=== PATIENT | male | born 1945 | race Caucasian/White ===

== ENCOUNTER 2021-01-29 18:00 | Outpatient (REF) | payer MEDICARE, BC, SELFPAY ==
[2021-01-29 20:59] LABS: Abs Immature Grans 0.02 10^3/uL (0.0-0.06); Absolute Basophil Count 0.08 10^3/uL (0.0-0.2); Absolute Eosinophil Count 0.15 10^3/uL (0.0-0.7); Absolute Lymphocyte Count 1.73 10^3/uL (1.2-3.4); Absolute Monocyte Count 1.21 10^3/uL (0.1-0.8); Absolute Neutrophil Count 4.79 10^3/uL (1.2-6.7); Eosinophils % 1.9; HGB 13.2 g/dL (13.5-17.5); Immature Grans % 0.3; Lymphocytes % 21.7; MCH 30.4 pg (27.0-33.0); MCHC 33.8 % (32.0-36.0); MCV 89.9 fL (80-95); MPV 10.8 fL (8.0-11.0); Monocytes % 15.2; Neutrophils % 59.9; Nucleated RBC 0 %; Platelet Count 205 10^3/uL (130-400); RBC 4.34 10^6/uL (4.36-5.78); RDW 13.2 % (11.8-14.1); RDW-SD 43.5 fL; WBC 7.98 10^3/uL (4.4-10.8)
[2021-01-29 21:04] LABS: Anion Gap 7.5 mmol/L (3-11); BUN 30 mg/dL (7-18); CO2 27.5 mmol/L (21.0-32.0); CREATININE 1.7 mg/dL (0.70-1.30); Chloride 106 mmol/L (98-107); Estimated GFR 39.38 (mL/min/1.73m2); Glucose 114 mg/dL (74-106); Potassium 4.1 mmol/L (3.5-5.1); Sodium 141 mmol/L (136-145)
== END 2021-01-29 18:01 | disposition home or self-care (01) ==
LOC: LBN 18:00
PROVIDERS: Visit Provider Physician Assistant Medical
DX: R10.31 Right lower quadrant pain (principal)
CPT/HCPCS: 80048; 85025

== ENCOUNTER 2021-02-01 09:42 | Outpatient (CLI) | payer MEDICARE, BC, SELFPAY ==
--- NOTE | 2021-02-01 | DI.CT_ITS ---
Exam(s) CT RENAL COLIC WO EXAM: CT RENAL COLIC WO CLINICAL HISTORY: RT FLANK PAIN R10.9, HX KIDNEY STONES. TECHNIQUE: Imaging Protocol: Axial computed tomography images with coronal and sagittal reformatted images were created and reviewed. CONTRAST MATERIAL: Noncontrast COMPARISON: No exams were available for comparison FINDINGS: ABDOMEN: Exam is somewhat limited by motion at the level of the kidneys and lung bases. Lung Bases: Normal where visualized. Eventration of the right diaphragm Liver: Normal attenuation. Multiple cysts. Gallbladder and biliary tract: No radiodense calculus or dilation. Pancreas: Somewhat atrophic. Normal density, no calcifications or inflammatory process. Spleen: Normal. Kidneys: Normal size, contour and axis. 12 x 5 millimeter stone distal right ureter causing moderate hydronephrosis. Additional punctate calcifications. No perinephric collection. 12 millimeter stone lower pole left kidney. Additional smaller stone lower pole left kidney. Tiny stone upper pole left kidney. No masses seen. Adrenal glands: No masses seen. Abdominal Aorta: Atherosclerotic changes. Tortuous and mildly ectatic. PELVIS: Bladder: Symmetric distention, mild diffuse gross wall thickening. Reproductive: Enlarged prostate wi th calcifications impressing on the base of the bladder. Bowel: No obstruction or bowel wall thickening. Peritoneal cavity: No ascites, collection or mesenteric inflammatory response. Bones: Within normal limits. IMPRESSION: Moderate right hydronephrosis secondary to 12 millimeter stone in the distal right ureter. Additiona l bilateral nonobstructing renal calculi, left greater than right. RADIATION DOSE DELIVERED: 953.43mGy.cm Total DLP DATA REPOSITORY: All CT scans at this facility are submitted to the National Radiology Data Registry (NRDR) Dose Index Registry (DIR) with the [employer] (A[employer]). RADIATION OPTIMIZATION: All CT scans at this facility use at least one of these dose optimization te chniques: automated exposure control; mA and/or kV adjustment per patient size (includes targeted exa ms where dose is matched to clinical indication); or iterative reconstruction.
== END 2021-02-01 10:02 ==
PROVIDERS: Visit Provider Physician Assistant Medical
DX: R10.9 Unspecified abdominal pain (principal); N13.2 Hydronephrosis with renal and ureteral calculous obstruction
CPT/HCPCS: 74176

== ENCOUNTER 2021-02-02 08:16 | Observation (INO) | payer MEDICARE, BC, SELFPAY ==
[2021-02-02] VITALS (88 sets, daily range): BP systolic 81–151; BP diastolic 30–79; PULSE 86–116; RESP 14–39; TEMP 36.7–38.2; O2SAT 90–95; BMI 25.1
--- OUTSIDE RECORDS SUMMARY | 2021-02-02 08:23 | XMS_ITS ---
:1945 Author Care Team Providers Name Role Phone DR. DARIANA ALFARO Primary Care Provider [phone] Allergies Code Code System Name Reaction Severity Status Onset 001021 RxNorm Demerol ? ? Active ? Sulfa ? ? Active ? (Sulfonamide Antibiotics) Notes: MSG STEROID SENSITIVITY Medications Name Status Start Date Stop Date ? ? amoxicillin 875 mg-potassium Completed ? 04/2018 clavulanate 125 mg tablet aspirin 81 mg tablet Completed ? 04/25/2018 occasionally azelastine 137 mcg (0.1 %) nasal spray Unknown ? Not available aerosol ciprofloxacin 500 mg tablet Completed ? 05/23 clindamycin HCl 300 mg capsule Unknown ? N ot available Eliquis 5 mg tablet Active ? Not availabl e fluorouracil 5 % topical cream Completed ? 0 06/18/2019 Fluvirin 5069-8474 45 mcg (15 mcg x 3)/0.5 mL intramuscular suspension Unknown ? Not available INJECT 0.5 ML INTRAMUSCULARLY DIRECTED. ICaps Active ? Not available once a day ketorolac 10 mg tablet Completed ? 8 lisinopril 20 mg tablet Completed ? 04/25/20 18 TK 1 T PO D lisinopril 20 mg-hydrochlorothiazide Unknown ? Not available 12.5 mg tablet lisinopril 40 mg tablet Active ? Not avai lable melatonin Completed ? 10/31/2017 at bedtime metoprolol tartrate 50 mg tablet Active ? Not available Mucinex Active ? Not available prn nystatin 100,000 unit/gram topical Completed ? 06/18/2019 cream oxybutynin chloride 5 mg tablet Active ? Not available triamcinolone acetonide 0.1 % topical Unknown ? Not available cream Tylenol 325 mg tablet Active ? Not availa ble Take 1 tablet every week by oral route as needed. valacyclovir 500 mg tablet Active ? Not a vailable as needed Vitamin D3 Active ? Not available once a day zaleplon 10 mg capsule Unknown ? Not avail able Take 1 capsule as needed by oral route for 30 days. Problems Name Status Onset Date Source ? Insomnia Active 05/03/2016 ? Aortic Aneurysm Active 05/03/2016 ? Pulmonary Embolism Active 04/25/2018 ? Obstructive Sleep Apnea Syndrome Active ? ? Benign Essential Hypertension Active ? Hi story Atrial Arrhythmia Active ? History Allergic Rhinitis Active ? Encounter Kidney Stone Active ? History Sleep Apnea Unknown ? History Edema Active ? History Notes: *Auto CPAP download from 05/18/19 to 06/16/19 revealed: 1. Adherent at 90%>4hrs 2. AHI of 9.5 on therapy of Auto CPAP 4- 15 cwp; 95%=9.4 cwp 3. Leak= 21.4 L/min Procedures Date Name Performed by ? ? Other Information not avai lable Notes: Kidney stones ? Other Information not avai lable Notes: Appendectomy ? Other Information not avai lable Notes: Tonsillectomy Results Lab Results None recorded. Past Encounters None recorded. Social History Tobacco Smoking Status Former Smoker Notes: Hx of s moking cigars and pipes, quit in 1984 Vaccine List None recorded. Plan of Care Reminders Provider Appointments None ? ? recorded. Lab None ? ? recorded. Referral None ? ? recorded. Procedures None ? ? recorded. Surgeries None ? ? recorded. Imaging None ? ? recorded. Vitals 06/18/2019 11:00AM Follow Up ([facility]) Height Weight BMI Blood Pressure 5 ft 11 in 190.1 lbs 26.5 kg/m2 137/68 mm[Hg] 04/30/2019 11:20AM Follow Up ([facility]) Height Weight BMI Blood Pressure 5 ft 11 in 188.5 lbs 26.3 kg/m2 (1) 167/67 mm[H g] (2) 151/72 mm[Hg ] 04/25/2018 02:15PM FOLLOW UP Height Weight BMI Blood Pressure 5 ft 11 in 192.6 lbs 26.9 kg/m2 145/74 mm[Hg] 10/31/2017 08:45AM FOLLOW UP Height Weight BMI Blood Pressure 5 ft 11 in 187 lbs 26.1 kg/m2 168/76 mm[Hg] 06/13/2017 11:30AM FOLLOW UP Height Weight BMI Blood Pressure 5 ft 11 in 187.8 lbs 26.2 kg/m2 (1) 161/75 mm[H g] (2) 163/74 mm[Hg ] 05/03/2016 11:00AM FOLLOW UP Height Weight BMI Blood Pressure 5 ft 11 in 191.6 lbs 26.7 kg/m2 144/74 mm[Hg] 04/29/2015 09:00AM FOLLOW UP Height Weight BMI Blood Pressure 5 ft 11 in 188.6 lbs 26.3 kg/m2 (1) 151/79 mm[H g] (2) 163/69 mm[Hg ] 04/29/2014 09:15AM FOLLOW UP Height Weight BMI Blood Pressure 5 ft 11 in 190 lbs 26.5 kg/m2 137/70 mm[Hg]
--- NOTE | 2021-02-02 08:30 | DI.RAD_ITS ---
Exam(s) XR PORTABLE CHEST AP EXAM: XR PORTABLE CHEST AP CLINICAL HISTORY: Fever, PUI, R/O PNA TECHNIQUE: 2D digital imaging was performed. COMPARISON: CT CT RENAL COLIC WO from 02/01/[address] RENAL COLIC WO from 02/01/2021 FINDINGS: LUNGS: Linear densities above right diaphragm consistent with atelectasis or scarring. Patchy densit ies in both lungs. No pleural abnormality seen. HEART: Normal. MEDIASTINUM: Aorta mildly tortuous. BONES: Unremarkable. IMPRESSION: Mild bilateral patchy infiltrates. DATA REPOSITORY: RADIATION DOSE DELIVERED:
--- NOTE | 2021-02-02 08:53 | ED.GENADUL_ITS ---
Discharge Plan Disposition Patient Disposition: [facility] INPATIENT Condition: Stable Discharge Details Clinical Impression: Fever, Kidney stones Admit Date/Time: 02/02/21 12:49 Admit Provider: Matt Gamez Attending Provider: Matt Gamez Primary Care Provider: [facility] ED Provider: Susie Mon Medical Decision Making 75-year-old male presents to the ER with chief complaint of flank pain, abdominal pain and fever which began this morning. Patient had a renal CT yesterday after being seen in urgent care. He does have a history of kidney stones has had multiple lithotripsies and stone removals including stent placement. Patient and his are originally from [place] and stay here in town during the summer. Associated symptoms include diaphoresis, diarrhea, slight cough which began yesterday.. CBC shows no leukocytosis hemoglobin 13.2 hematocrit 39.1, absolute neutrophils 8.67 PT 11.0 INR 1.1 lactate slightly elevated at 1 7 sodium 140 potassium 3.6, BUN 29 creatinine 2.0 GFR 32, glucose 130 bilirubin 1.1 urinalysis is pending at this time Covid is pending at this time. BUN is up from 1.7 yesterday. 1006: Spoke with Dr. Gamez regarding patient case and details he is aware of patient from a referral yesterday, he does agree that patient needs to be at the least admitted and or transferred pending anesthesia input whether patient is a candidate for a stent placement here. He is to get back to me after speaking with anesthesia. He request previous medical records from patient's PCP from out of town. CXR: FINDINGS: LUNGS: Linear densities above right diaphragm consistent with atelectasis or scarring. Patchy densities in both lungs. No pleural abnormality seen. HEART: Normal. MEDIASTINUM: Aorta mildly tortuous. BONES: Unremarkable. IMPRESSION: Mild bilateral patchy infiltrates. 1020: Dr. Gamez at bedside for evaluation. 1057: Per Dr. Gamez patient is a candidate for surgery here. Plan is to take patient to the operating room. 1110: Report given to CHILLER HAND Harper she agrees to come and get patient. Patient remained hemodynamically stable throughout stay. Patient was transported by stretcher to the OR by staff. HPI General Mode of arrival: ambulatory . Date/Time Provider Initiated Documentation: 02/02/21 08:21 . Limitations to Documentation: no limitations . Information obtained by: patient and family () . HPI Narrative: 75-year-old male presents to the ER with chief complaint of flank pain, abdominal pain and fever which began this morning. Patient had a renal CT yesterday after being seen in urgent care. He does have a history of kidney stones has had multiple lithotripsies and stone removals including stent placement. Patient and his are originally from [place] and stay here in town during the summer. Associated symptoms include diaphoresis, diarrhea, slight cough which began yesterday.. Related Data Home Medications Medication Instructions Recorded Confirmed acetaminophen 1,000 mg PO Q6H PRN 02/02/21 02/02/21 apixaban [Eliquis] 5 mg PO BID 02/02/21 02/02/21 cholecalciferol (vitamin D3) 50 mcg PO DAILY 02/02/21 02/02/21 [Vitamin D3] lisinopril 10 mg PO DAILY 02/02/21 02/02/21 metoprolol tartrate 25 mg PO DAILY 02/02/21 02/02/21 Allergies Allergy/AdvReac Type Severity Reaction Status Date / Time oxycodone Allergy Unknown Unverified 02/02/21 11:34 Sulfa (Sulfonamide Allergy Hives Unverified 02/02/21 11:34 Antibiotics) meperidine [From Demerol] AdvReac Low BP Unverified 02/02/21 11:34 steroid Allergy vision loss Uncoded 02/02/21 11:34 General Stated Complaint: Fever LORIE: 2 Review of Systems Narrative: Constitutional: Negative for weight loss, alert and oriented, well groomed, normal body habitus, appears comfortable. HEENT: Denies trauma, blurry vision, nasal discharge, sore throat, trouble swallowing. Positive headache. Chest: Denies chest pain, palpitations, irregular rhythm, hypertension. Respiratory: Denies Shortness of breath, hemoptysis. Positive cough. GI: Denies nausea, vomiting, constipation. Positive mild abdominal discomfort, diarrhea which began yesterday. : Denies dysuria, hematuria, rectal bleeding. Positive right flank pain. History of bilateral kidney stones with multiple procedures in the past. Neuro: Denies dizziness, blurry vision, weakness, syncope, or facial numbness. Hematologic: Denies easy bruising, intolerance to heat or cold, hair loss. [facility] Medical History (Updated 02/02/21 @ 11:42 by Matt Gamez MD) DVT (deep venous thrombosis) History of obstructive sleep apnea CPAP HTN (hypertension) Hx of aortic aneurysm Hx of hemorrhoids Kidney stones Pulmonary emboli Ureteral stone with hydronephrosis Surgical History (Updated 02/02/21 @ 11:32 by Harper Limon) Hx of appendectomy Hx of cystoscopy Hx of lithotripsy Hx of tonsillectomy Social History Smoking/Tobacco Use Status: Never Smoking risk assessment performed?: Yes Alcohol Intake: never Drug use: Never Do you feel safe at home: Yes Do you feel safe in your relationship?: Yes Exam Narrative Exam Narrative: Constitutional: Alert and oriented x3. Appears stated age. Normal body habitus. Head: Normocephalic, no trauma. Eyes: Pupils PERRLA, Red reflex noted, EOM's intact. Eyelids symmetrical without lesions, discharge, or swelling. ENT: Bilateral TM's WNL, External ear normal to inspection, no mastoid TTP, swelling, or erythema, Nasal turbinates WNL, no nasal discharge. Normal dentition, Posterior pharynx WNL, no exudate. Chest: RRR, Normal S1, S2, distal pulses intact. Resp: Lungs clear to auscultation bilaterally, no wheezes, rales, or rhonchi. Musculoskeletal: Normal gait, 5/5 strength to all four extremities. Skin: No suspicious rashes or lesions. Capillary refill less than 2 sec. Neurologic: Cranial nerves II-XII intact. Alert and oriented x 3. DTR's intact. Hematologic/Lymphatic: No ecchymosis, no lymphadenopathy. Course Vital Signs Vital signs: Vital Signs Temperature 37.9 C H 02/02/21 08:48 Pulse 103 H 02/02/21 08:48 Respiratory Rate 27 H 02/02/21 08:48 Blood Pressure 151/69 H 02/02/21 08:48 Pulse Oximetry 91 L 02/02/21 08:48 Temperature 37.9 C H 02/02/21 08:48 Temperature Source Oral 02/02/21 08:48 Pulse 103 H 02/02/21 08:48 Respiratory Rate 27 H 02/02/21 08:48 Respiratory Effort Non-Labored 02/02/21 08:52 Blood Pressure 151/69 H 02/02/21 08:48 Blood Pressure Position Supine 02/02/21 08:48 Pulse Oximetry 91 L 02/02/21 08:48 Oxygen Delivery Method Room Air 02/02/21 08:48 Oxygen Flow Rate 0 02/02/21 08:48 Pain Level 6 02/02/21 08:48 Lab/Test Results Lab/Test Results: 02/02/21 08:34 Blood Blood Culture - Pending 02/02/21 08:34 Blood Blood Culture - Pending
[2021-02-02] MEDS: Normal Saline 1,000 ML 150 ML IV (09:16)
[2021-02-02 09:17] LABS: Lactate 1.7 mmol/L (0.6-1.4)
[2021-02-02 09:17] LABS: Source Nasal/Nares
[2021-02-02 09:24] LABS: Abs Immature Grans 0.03 10^3/uL (0.0-0.06); Absolute Basophil Count 0.03 10^3/uL (0.0-0.2); Absolute Eosinophil Count 0.05 10^3/uL (0.0-0.7); Absolute Lymphocyte Count 0.38 10^3/uL (1.2-3.4); Absolute Monocyte Count 0.21 10^3/uL (0.1-0.8); Absolute Neutrophil Count 8.67 10^3/uL (1.2-6.7); Basophils % 0.3; Eosinophils % 0.5; HCT 39.1 % (40.0-50.0); HGB 13.2 g/dL (13.5-17.5); Immature Grans % 0.3; Lymphocytes % 4.1; MCH 29.5 pg (27.0-33.0); MCHC 33.8 % (32.0-36.0); MCV 87.5 fL (80-95); MPV 9.8 fL (8.0-11.0); Monocytes % 2.2; Neutrophils % 92.6; Nucleated RBC 0 %; Platelet Count 182 10^3/uL (130-400); RBC 4.47 10^6/uL (4.36-5.78); RDW-SD 41.8 fL; WBC 9.37 10^3/uL (4.4-10.8)
[2021-02-02 09:27] LABS: Magnesium 2.1 mg/dL (1.8-2.4)
[2021-02-02 09:33] LABS: INR 1.1 (0.9-1.1); PTT Activated 23.8 sec (21.0-27.5)
[2021-02-02 09:39] LABS: ALT 36 U/L (16-63); AST 29 U/L (15-37); Albumin 3.8 g/dL (3.4-5.0); Alkaline Phosphatase 51 U/L (46-116); Anion Gap 8.8 mmol/L (3-11); BUN 29 mg/dL (7-18); Bilirubin, Total 1.1 mg/dL (0.2-1.0); CO2 26.2 mmol/L (21.0-32.0); Chloride 105 mmol/L (98-107); Estimated GFR 32.65 (mL/min/1.73m2); Glucose 130 mg/dL (74-106); Potassium 3.6 mmol/L (3.5-5.1); Sodium 140 mmol/L (136-145); Total Protein 7.8 g/dL (6.4-8.2)
[2021-02-02 10:09] LABS: COVID-19 PCR Negative (Negative)
[2021-02-02 10:15] LABS: Bilirubin Negative (Negative); Blood Trace-lysed (Negative); Clarity Clear (Clear); Glucose Negative (Negative); Ketones Negative (Negative); Leukocyte Esterase Trace (Negative); Nitrite Negative (Negative); Urobilinogen 0.2 EU/dL (Up TO 0.2); pH 5.5 (5-8)
[2021-02-02 10:23] LABS: Bacteria Rare HPF (Negative); C & S Indicated? Yes; Casts Negative LPF (Negative); Crystals Negative HPF (Negative); Epithelial Cells Rare HPF (Negative); Mucus Negative (Negative)
--- NOTE | 2021-02-02 10:24 | NUR.NOTE ---
Nursing Note: Andria Devries, NoReshma Alejandro. P [phone]. F [phone]. Requested last CBC, urinalysis, CMP, abd/pelvic CT, and last provider note. Signed release by pt. Nikki Nair
--- NOTE | 2021-02-02 10:31 | W.ANESPRE ---
General Info Date of Service Date Performed: 02/02/21 Height: 5 ft 11 in Weight: 81.7 kg Body Mass Index (BMI): 25.1 Meds Allergies and Home Medications Allergies Allergy/AdvReac Type Severity Reaction Status Date / Time oxycodone Allergy Unknown Unverified 02/02/21 08:42 Sulfa (Sulfonamide Allergy Hives Unverified 02/02/21 08:42 Antibiotics) meperidine [From Demerol] AdvReac Low BP Unverified 02/02/21 08:42 steroid Allergy vision loss Uncoded 02/02/21 08:42 Home Medication Medication Instructions Recorded acetaminophen 1,000 mg PO Q6H PRN 02/02/21 apixaban [Eliquis] 5 mg PO BID 02/02/21 lisinopril 10 mg PO DAILY 02/02/21 metoprolol tartrate 25 mg PO DAILY 02/02/21 Current Visit Medications: Current Medications Generic Name Dose Route Start Last Admin Trade Name Freq PRN Reason Stop Dose Admin Sodium Chloride 500 mls @ 0 mls/hr 02/02/21 08:34 Saline 500ml Bag IV PRN PRN As Directed Sodium Chloride 1,000 mls @ 150 mls/hr 02/02/21 08:45 02/02/21 09:16 Saline 1000ml Bag IV 150 mls/hr INFUSION LARON Administration IV Miscellaneous Supplies 1 each 02/02/21 08:45 Iv Access IV DIRECTED LARON Sodium Chloride 0 ml 02/02/21 08:34 Normal Saline Flush 10 Ml Syr IVP PRN PRN PFSH Active Problems Active Problems: Problem Status Onset Code HTN (hypertension) I10 DVT (deep venous thrombosis) I82.409 Kidney stones N20.0 Medical History Medical History (Updated 02/02/21 @ 10:57 by Susie Mon) DVT (deep venous thrombosis) HTN (hypertension) Kidney stones Tobacco Smoking/Tobacco Use Status: Never Alcohol Alcohol Intake: never Substance Use Substance use: Never Vital Signs and Lab Results Vital Signs Most Recent Vital Signs in EMR: Most Recent Vital Signs Temp Pulse Resp BP Pulse Ox 37.2 C 101 H 19 128/64 95 02/02/21 10:13 02/02/21 10:00 02/02/21 10:10 02/02/21 10:00 02/02/21 10:01 Lab Results Result Diagrams: 02/02/21 09:02/02/21 09:05 Blood Type / Crossmatch: No Data to Display Complete Blood Count: White Blood Count 9.37 10^3/uL (4.4-10.8) 02/02/21 09:05 02/02/21 Red Blood Count 4.47 10^6/uL (4.36-5.78) 02/02/21 09:02/02/21 Hemoglobin 13.2 g/dL (13.5-17.5) L 02/02/21 09:05 02/02/21 Hematocrit 39.1 % (40.0-50.0) L 02/02/21 09:02/02/21 Platelet Count 182 10^3/uL (130-400) 02/02/21 09:02/02/21 Venous Blood Lactate 1.7 mmol/L (0.6-1.4) H 02/02/21 09:05 02/02/21 Complete Metabolic Panel: Sodium Level 140 mmol/L (136-145) 02/02/21 09:02/02/21 Potassium Level 3.6 mmol/L (3.5-5.1) 02/02/21 09:02/02/21 Chloride Level 105 mmol/L (98-107) 02/02/21 09:02/02/21 Carbon Dioxide Level 26.2 mmol/L (21.0-32.0) 02/02/21 09:02/02/21 Blood Urea Nitrogen 29 mg/dL (7-18) H 02/02/21 09:02/02/21 Creatinine 2.0 mg/dL (0.70-1.30) H 02/02/21 09:02/02/21 Estimated GFR/1.73 m2 32.65 (mL/min/1.73m2) 02/02/21 09:02/02/21 Magnesium Level 2.1 mg/dL (1.8-2.4) 02/02/21 09:02/02/21 Calcium Level 9.0 mg/dL (8.5-10.1) 02/02/21 09:02/02/21 Albumin 3.8 g/dL (3.4-5.0) 02/02/21 09:02/02/21 Glucose Level 130 mg/dL (74-106) H 02/02/21 09:05 02/02/21 Liver Function Panel: Alanine Aminotransferase (ALT/SGPT) 36 U/L (16-63) 02/02/21 09:05 02/02/21 Aspartate Amino Transf (AST/SGOT) 29 U/L (15-37) 02/02/21 09:05 02/02/21 Coagulation Panel: INR International Normalized Ratio 1.1 (0.9-1.1) 02/02/21 09:05 02/02/21 Prothrombin Time 11.0 sec (9.3-11.0) 02/02/21 09:05 02/02/21 Activated Partial Thromboplast Time 23.8 sec (21.0-27.5) 02/02/21 09:05 02/02/21 Cardiac Panel: No Data to Display Arterial Blood Gas: No Data to Display Venous Blood Gas: No Data to Display Pancreas Panel: No Data to Display Thyroid Panel: No Data to Display Infectious Disease: Coronavirus (COVID-19)(PCR) Negative (Negative) 02/02/21 08:43 02/02/21 Coronavirus 2019 Source Nasal/Nares 02/02/21 08:43 02/02/21 Blood Cultures: No Data to Display Toxicology Panel: No Data to Display Anesthesia Assessment and Plan Anesthesia History Personal History: No History of Anesthesia Complications Family History: No Family History of Anesthesia Complications Exercise Tolerance Exercise Tolerance: Metabolic Equivalents>4 Pertinent Negatives Pertinent Negatives: No Symptoms of GERD and Other (Hx DVT and PE (on Elequis). AAA last measured 3.2 per the patients ) Cardiac & Pulmonary Exam Cardiac Exam: Normal S1/S2 Heart Sounds Pulmonary Exam: Clear Bilateral Breath Sounds Airway Exam Known Difficult Airway: No Mallampati Class: 2 Mouth Opening: Normal (> 3cm) Thyromental Distance: Greater than 3 cm Neck Range of Motion: Limited ROM (Slight limitation) Neck Circumference: Normal Teeth Condition: Normal Dentition and Dental Caries ASA Classification ASA Score: ASA 3 Emergency Case?: Yes NPO Status NPO Status: NPO Clears >2 hours, Solids >8 hours Anesthesia Plan Resuscitation Status: Full Code Anesthesia Technique: General Anesthesia Airway Planned: Natural Airway Monitors Used: Standard Monitors
--- NOTE | 2021-02-02 11:03 | HPE_ITS ---
Date of service: 02/02/21 Time of Service: 11:03 Assessment and Plan Assessment and plan (1) Fever: Status: Acute (2) Ureteral stone with hydronephrosis: Status: Acute Assessment and plan: With an obstructing ureteral stone and fevers, I believe we are obligated to place a ureteral stent to relieve any obstruction. I will not plan on addressing the stone intitially. We will treat him with antibiotics and make a planned return to the OR for a definitive ureteroscopy and holmium laser lithotripsy. We will attempt to obtain his medical records from his [place] (including his cardiology records). History of Present Illness History of Present Illness Chief Complaint: Right ureteral stone Narrative: Is a 75-year-old gentleman who spends most of the year in [place] although he and his do spend 4 months a year here in [place]. He describes a history of bilateral kidney stones. He has passed stones previously, but he has required both ureteroscopic procedures with holmium laser lithotripsy and ESWL in the past. He presented to an urgent care late last week with right-sided back pain. He had a CT scan done yesterday which demonstrated nonobstructing stones in the kidneys bilaterally, but there is a 12 mm right ureteral stone and hydronephrosis. Overnight, he developed fevers and chills. He presented to our emergency department. His serum creatinine has bumped slightly. He does not have an elevated white blood count, but he does have a left shift and a slightly elevated lactate. Not having any dysuria but does have persistent right-sided flank pain. He has a history of a stable abdominal aortic aneurysm. He is followed by cardiology in [place]. He was identified as having pulmonary emboli. No specific underlying etiology was ever identified, so he is on long-term Eliquis. Review of Systems Constitutional Constitutional: Reports chills and Reports fever(s) Eyes Eyes: Reports requires corrective lenses ENT Ears, Nose, Mouth, and Throat: Denies dysphagia and Denies odynophagia Cardiovascular Cardiovascular: Denies chest pain at rest and Denies irregular heart rhythm Respiratory Respiratory: Denies hemoptysis and Denies excessive phlegm production Gastrointestinal Gastrointestinal: Denies dysphagia, Denies odynophagia and Denies vomiting Musculoskeletal Musculoskeletal: Reports back pain Neurologic Neurologic: Denies confusion and Denies convulsions Psychiatric Psychiatric: Denies confusion [facility] Medical History (Updated 02/02/21 @ 11:42 by Matt Gamez MD) DVT (deep venous thrombosis) History of obstructive sleep apnea CPAP HTN (hypertension) Hx of aortic aneurysm Hx of hemorrhoids Kidney stones Pulmonary emboli Ureteral stone with hydronephrosis Surgical History (Updated 02/02/21 @ 11:32 by Harper Limon) Hx of appendectomy Hx of cystoscopy Hx of lithotripsy Hx of tonsillectomy Social History Smoking/Tobacco Use Status: Never Smoking risk assessment performed?: Yes Alcohol Intake: never Drug use: Never Do you feel safe at home: Yes Do you feel safe in your relationship?: Yes Meds Allergies and Home Medications Allergies Allergy/AdvReac Type Severity Reaction Status Date / Time oxycodone Allergy Unknown Unverified 02/02/21 11:34 Sulfa (Sulfonamide Allergy Hives Unverified 02/02/21 11:34 Antibiotics) meperidine [From Demerol] AdvReac Low BP Unverified 02/02/21 11:34 steroid Allergy vision loss Uncoded 02/02/21 11:34 Home Medications Medication Instructions Recorded Confirmed Type acetaminophen 1,000 mg PO Q6H PRN 02/02/21 02/02/21 History apixaban [Eliquis] 5 mg PO BID 02/02/21 02/02/21 History cholecalciferol (vitamin D3) 50 mcg PO DAILY 02/02/21 02/02/21 History [Vitamin D3] lisinopril 10 mg PO DAILY 02/02/21 02/02/21 History metoprolol tartrate 25 mg PO DAILY 02/02/21 02/02/21 History Exam Const General: cooperative and well developed Orientation: alert, awake and oriented x3 Neck Neck: supple Resp Effort & Inspection: normal respiratory effort Auscultation: clear to auscultation bilaterally Cardio Rate: regular rate Rhythm: regular rhythm GI Palpation: soft and no masses Neuro General: patient alert, patient awake and patient oriented x3 Results Labs Result diagrams: 02/02/21 09:05 02/02/21 09:05 Labs: Laboratory Results - last 24 hr 02/02/21 02/02/21 02/02/21 08:43 09:05 09:05 WBC RBC Hgb Hct MCV MCH MCHC RDW Plt Count MPV Immature Gran % Neutrophils % Lymphocytes % Monocytes % Eosinophils % Basophils % Nucleated RBC % Absolute Neutrophils Absolute Lymphocytes Absolute Monocytes Absolute Eosinophils Absolute Basophils PT INR APTT VBG Lactate Sodium 140 Potassium 3.6 Chloride 105 Carbon Dioxide 26.2 Anion Gap 8.8 BUN 29 H Creatinine 2.0 H Estimated GFR/1.73 m2 32.65 Glucose 130 H Calcium 9.0 Magnesium 2.1 Total Bilirubin 1.1 H AST 29 ALT 36 Alkaline Phosphatase 51 Total Protein 7.8 Albumin 3.8 Urine Color Urine Clarity Urine pH Ur Specific [place] Urine Protein Urine Ketones Urine Blood Urine Nitrite Urine Bilirubin Urine Urobilinogen Ur Leukocyte Esterase Urine RBC Urine WBC Ur Epithelial Cells Urine Crystals Urine Bacteria Urine Casts Urine Mucus Ur Culture Indicated? Urine Glucose COVID-19 Source Nasal/Nares SARS-CoV-2 (PCR) Negative 02/02/21 02/02/21 02/02/21 09:05 09:05 09:05 WBC 9.37 RBC 4.47 Hgb 13.2 L Hct 39.1 L MCV 87.5 MCH 29.5 MCHC 33.8 RDW 13.0 Plt Count 182 MPV 9.8 Immature Gran % 0.3 Neutrophils % 92.6 Lymphocytes % 4.1 Monocytes % 2.2 Eosinophils % 0.5 Basophils % 0.3 Nucleated RBC % 0 Absolute Neutrophils 8.67 H Absolute Lymphocytes 0.38 L Absolute Monocytes 0.21 Absolute Eosinophils 0.05 Absolute Basophils 0.03 PT 11.0 INR 1.1 APTT 23.8 VBG Lactate 1.7 H Sodium Potassium Chloride Carbon Dioxide Anion Gap BUN Creatinine Estimated GFR/1.73 m2 Glucose Calcium Magnesium Total Bilirubin AST ALT Alkaline Phosphatase Total Protein Albumin Urine Color Urine Clarity Urine pH Ur Specific [place] Urine Protein Urine Ketones Urine Blood Urine Nitrite Urine Bilirubin Urine Urobilinogen Ur Leukocyte Esterase Urine RBC Urine WBC Ur Epithelial Cells Urine Crystals Urine Bacteria Urine Casts Urine Mucus Ur Culture Indicated? Urine Glucose COVID-19 Source SARS-CoV-2 (PCR) 02/02/21 10:10 WBC RBC Hgb Hct MCV MCH MCHC RDW Plt Count MPV Immature Gran % Neutrophils % Lymphocytes % Monocytes % Eosinophils % Basophils % Nucleated RBC % Absolute Neutrophils Absolute Lymphocytes Absolute Monocytes Absolute Eosinophils Absolute Basophils PT INR APTT VBG Lactate Sodium Potassium Chloride Carbon Dioxide Anion Gap BUN Creatinine Estimated GFR/1.73 m2 Glucose Calcium Magnesium Total Bilirubin AST ALT Alkaline Phosphatase Total Protein Albumin Urine Color Yellow Urine Clarity Clear Urine pH 5.5 Ur Specific [place] 1.020 Urine Protein Negative Urine Ketones Negative Urine Blood Trace-lysed H Urine Nitrite Negative Urine Bilirubin Negative Urine Urobilinogen 0.2 Ur Leukocyte Esterase Trace H Urine RBC 3-5 H Urine WBC 5-10 Ur Epithelial Cells Rare Urine Crystals Negative Urine Bacteria Rare Urine Casts Negative Urine Mucus Negative Ur Culture Indicated? Yes Urine Glucose Negative COVID-19 Source SARS-CoV-2 (PCR) Last Vital Signs Temp 37.2 C 02/02/21 10:13 Pulse 110 H 02/02/21 10:30 Resp 20 02/02/21 10:30 BP 119/63 02/02/21 10:30 Pulse Ox 91 L 02/02/21 10:30
[2021-02-02] MEDS: Metoprolol 25 MG TAB PO (11:05)
[2021-02-02] MEDS: cefTRIAXone 1 GM/50 ML BAG IVPB (11:13)
--- NOTE | 2021-02-02 11:15 | DI.RAD_ITS ---
Exam(s) XR RETROGRADE IN OR EXAM: XR RETROGRADE IN OR CLINICAL HISTORY: Right ureteral stone. TECHNIQUE: Fluoroscopy was provided for the referring physician for guidance with performing retrogr tomasa procedure. COMPARISON: No exams were available for comparison FINDINGS: Please see procedure note for details. Fluoro time 22.4 seconds RADIATION DOSE DELIVERED: carolyn Curtis=4.6 mGy
[2021-02-02] MEDS: Lactated Ringers 1,000 ML 30 ML IV (12:32)
[2021-02-02] MEDS: Lidocaine 2% Jelly 6 ML SYR (12:40)
[2021-02-02] MEDS: Omnipaque 300 MG/ML 50 ML BTL (13:11)
--- NOTE | 2021-02-02 13:29 | W.PM.OP ---
Date of service: 02/02/21 Time of Service: 13:29 Operative Note Operative Note DATE OF PROCEDURE: 02/02/21 PRE-OP DIAGNOSIS: Right ureteral stone POST-OP DIAGNOSIS: same PROCEDURE: cystoscopy, right retrograde pyelogram, insert right ureteral stent SURGEON: Matt Gamez ANESTHESIA TYPE: Local By Surgeon and General:No Airway Refer to Anesthesia Record ESTIMATED BLOOD LOSS: 5 PATHOLOGY: none sent COMPLICATIONS: None Patient was transported to: PACU Patient's condition: stable Implants: 4.8 Israeli by 22 to 30 cm right ureteral stent 16 Israeli sales catheter with 10 cc sterile water in balloon Indications: This is a 75-year-old gentleman who has a past history of kidney stones. He has received surgical treatment for his stones in [place]. He presented to a local urgent care with renal colic late last week. A CT scan was done yesterday in the right ureteral stone with hydronephrosis was identified. Overnight, he developed fevers and chills. He presented to our emergency room. Blood cultures are pending. He was given a dose of IV ceftriaxone. With the likelihood of infected urine trapped behind the ureteral stone, he presents to the operating room for stent placement. Findings: Right distal ureteral filling defect with dilated ureter proximal to the stone Procedure Description: The patient was brought to the operating room on 02/02/2021. After successful induction of general anesthesia without intubation, he was placed in the dorsal lithotomy position. His genitalia was prepped and draped. 2% Xylocaine jelly was instilled into the urethra to act as a local anesthetic. A 22 Israeli rigid cystoscope was passed through the urethra into the bladder. The urethra and bladder were inspected with the 30 degree lens. The pendulous, bulbar and membranous urethra's appeared normal with no strictures. The prostatic urethra showed trilobar enlargement with a small median lobe jutting back into the bladder. The bladder neck was entered and the bladder mucosa was inspected. The right ureteral orifice was identified and was cannulated with a 5 Israeli access catheter. A retrograde pyelogram was obtained by injecting Omnipaque through the access catheter under fluoroscopic guidance. We were able to outline a filling defect in the right distal ureter. The ureter proximal to the filling defect was quite dilated. A Glidewire was then advanced through the access catheter and maneuvered above the level of the stone to the renal pelvis. The access catheter was then removed. A 4.8 Israeli variable length stent was advanced over the guidewire. The proximal end of the stent was curled in the renal pelvis and the distal end was curled in the bladder. The positioning of the stent was confirmed both fluoroscopically and cystoscopically. The cystoscope was then removed. I passed a 16 Israeli Sales catheter through the urethra into the bladder. The catheter balloon was inflated with 10 cc of sterile water. The catheter was hooked to gravity drainage. He tolerated this procedure well.
--- NOTE | 2021-02-02 13:52 | W.ANESPOSTOP ---
Postoperative Evaluation Date, Time and Location Date Performed: 02/02/21 Time Performed: 13:53 Patient Location: PACU Vital Signs Most Recent Imported Vital Signs: Most Recent Vital Signs Temp Pulse Resp BP Pulse Ox 38.2 C H 93 H 20 133/79 94 02/02/21 13:40 02/02/21 13:40 02/02/21 13:40 02/02/21 13:40 02/02/21 13:40 Pain Score Most Recent Pain Score: Most Recent Pain Score Pain Level [Bilateral Back] 3 02/02/21 10:14 Pain Level 1 02/02/21 13:40 Assessment Mental Status: Awake (Alert & Oriented to Patient Baseline) Airway and Respiratory Function: Patent airway with normal (patient baseline) respiratory exam Cardiovascular Function: Hemodynamically Stable Hydration Status: Adequately Hydrated Nausea & Vomiting: No Nausea or Vomiting Pain: Pain is tolerable per patient Peripheral Nerve Block: Patient did not receive a nerve block
[2021-02-02] MEDS: Lactated Ringers 1,000 ML 80 ML IV (14:14)
[2021-02-02] MEDS: Acetaminophen 325 MG TAB 650 MG PO ×2 (14:14→20:48)
[2021-02-02 20:42] LABS: HCT 35.4 % (40.0-50.0); HGB 12.1 g/dL (13.5-17.5)
[2021-02-02] MEDS: traMADol 50 MG TAB PO (23:33)
[2021-02-03] VITALS: TEMP 37.5
[2021-02-03] MEDS: VANCOMYCIN 1,000 MG in Normal Saline 250 ML 166.6666 MG IVPB (03:57)
--- NOTE | 2021-02-03 06:37 | W.PM.PROGNOT ---
Date of Service Date of service: 02/03/21 Time of Service: 06:38 Assessment and Plan Assessment and plan (1) Ureteral stone with hydronephrosis: Status: Acute (2) Fever: Status: Acute Assessment and plan: Gram-positive cocci in the bloodstream from a urinary source, so we may need to look for other possible sources. He denies any skin lesions. He does have chronic sinus issues. He has no prosthetic devices such as valves or orthopedic implants. I will rely on my hospitalist colleagues to guide his additional work-up and antibiotic choices. I will be out of the hospital today, but will be available by phone. Subjective Subjective Interval history since last seen: Continues to have bladder spasms and suprapubic discomfort. He is able to tolerate tramadol with no side effects. His initial blood cultures are growing gram-positive cocci in both specimens. Exam Narrative Exam Narrative: He has remained febrile up to 38.2 as of last evening. His urine is clearing but still blood-tinged His morning labs are pending. Objective Last Vital Signs Temp 37.5 C 02/03/21 00:00 Pulse 86 02/02/21 23:45 Resp 18 02/02/21 23:45 BP 132/65 02/02/21 23:45 Pulse Ox 94 02/02/21 23:45 Laboratory Results - last 24 hr 02/02/21 02/02/21 02/02/21 08:43 09:05 09:05 WBC RBC Hgb Hct MCV MCH MCHC RDW Plt Count MPV Immature Gran % Neutrophils % Lymphocytes % Monocytes % Eosinophils % Basophils % Nucleated RBC % Absolute Neutrophils Absolute Lymphocytes Absolute Monocytes Absolute Eosinophils Absolute Basophils PT INR APTT VBG Lactate Sodium 140 Potassium 3.6 Chloride 105 Carbon Dioxide 26.2 Anion Gap 8.8 BUN 29 H Creatinine 2.0 H Estimated GFR/1.73 m2 32.65 Glucose 130 H Calcium 9.0 Magnesium 2.1 Total Bilirubin 1.1 H AST 29 ALT 36 Alkaline Phosphatase 51 Total Protein 7.8 Albumin 3.8 Urine Color Urine Clarity Urine pH Ur Specific [place] Urine Protein Urine Ketones Urine Blood Urine Nitrite Urine Bilirubin Urine Urobilinogen Ur Leukocyte Esterase Urine RBC Urine WBC Ur Epithelial Cells Urine Crystals Urine Bacteria Urine Casts Urine Mucus Ur Culture Indicated? Urine Glucose COVID-19 Source Nasal/Nares SARS-CoV-2 (PCR) Negative 02/02/21 02/02/2121 09:05 09:05 09:05 WBC 9.37 RBC 4.47 Hgb 13.2 L Hct 39.1 L MCV 87.5 MCH 29.5 MCHC 33.8 RDW 13.0 Plt Count 182 MPV 9.8 Immature Gran % 0.3 Neutrophils % 92.6 Lymphocytes % 4.1 Monocytes % 2.2 Eosinophils % 0.5 Basophils % 0.3 Nucleated RBC % 0 Absolute Neutrophils 8.67 H Absolute Lymphocytes 0.38 L Absolute Monocytes 0.21 Absolute Eosinophils 0.05 Absolute Basophils 0.03 PT 11.0 INR 1.1 APTT 23.8 VBG Lactate 1.7 H Sodium Potassium Chloride Carbon Dioxide Anion Gap BUN Creatinine Estimated GFR/1.73 m2 Glucose Calcium Magnesium Total Bilirubin AST ALT Alkaline Phosphatase Total Protein Albumin Urine Color Urine Clarity Urine pH Ur Specific [place] Urine Protein Urine Ketones Urine Blood Urine Nitrite Urine Bilirubin Urine Urobilinogen Ur Leukocyte Esterase Urine RBC Urine WBC Ur Epithelial Cells Urine Crystals Urine Bacteria Urine Casts Urine Mucus Ur Culture Indicated? Urine Glucose COVID-19 Source SARS-CoV-2 (PCR) 02/02/21 02/02/21 10:10 20:25 WBC RBC Hgb 12.1 L Hct 35.4 L MCV MCH MCHC RDW Plt Count MPV Immature Gran % Neutrophils % Lymphocytes % Monocytes % Eosinophils % Basophils % Nucleated RBC % Absolute Neutrophils Absolute Lymphocytes Absolute Monocytes Absolute Eosinophils Absolute Basophils PT INR APTT VBG Lactate Sodium Potassium Chloride Carbon Dioxide Anion Gap BUN Creatinine Estimated GFR/1.73 m2 Glucose Calcium Magnesium Total Bilirubin AST ALT Alkaline Phosphatase Total Protein Albumin Urine Color Yellow Urine Clarity Clear Urine pH 5.5 Ur Specific [place] 1.020 Urine Protein Negative Urine Ketones Negative Urine Blood Trace-lysed H Urine Nitrite Negative Urine Bilirubin Negative Urine Urobilinogen 0.2 Ur Leukocyte Esterase Trace H Urine RBC 3-5 H Urine WBC 5-10 Ur Epithelial Cells Rare Urine Crystals Negative Urine Bacteria Rare Urine Casts Negative Urine Mucus Negative Ur Culture Indicated? Yes Urine Glucose Negative COVID-19 Source SARS-CoV-2 (PCR)
[2021-02-03 06:40] VITALS: TEMP 38
[2021-02-03 06:42] VITALS: TEMP 38
[2021-02-03] MEDS: Acetaminophen 325 MG TAB 650 MG PO ×2 (06:42→16:17)
[2021-02-03 07:09] LABS: HCT 35.9 % (40.0-50.0); HGB 12.3 g/dL (13.5-17.5); MCH 29.6 pg (27.0-33.0); MCHC 34.3 % (32.0-36.0); MCV 86.3 fL (80-95); MPV 9.8 fL (8.0-11.0); Platelet Count 146 10^3/uL (130-400); RBC 4.16 10^6/uL (4.36-5.78); RDW 13.4 % (11.8-14.1); RDW-SD 41.6 fL
[2021-02-03 08:45] VITALS: BP 128/59; PULSE 100; RESP 18; TEMP 36.9; O2SAT 91
[2021-02-03] MEDS: Lisinopril 10 MG TAB PO (08:48)
[2021-02-03] MEDS: Metoprolol 25 MG TAB PO (08:48)
[2021-02-03] MEDS: Cholecalciferol (Vitamin D3) 1,000 UNIT TAB 2000 UNITS PO (08:48)
[2021-02-03] MEDS: Azithromycin 250 MG TAB 500 MG PO (09:59)
[2021-02-03] MEDS: cefTRIAXone 1 GM/50 ML BAG IVPB (10:00)
[2021-02-03] MEDS: Apixaban 5 MG TAB PO ×2 (10:00→20:29)
[2021-02-03] MEDS: Normal Saline 500 ML 100 ML IV (10:00)
[2021-02-03] MEDS: Lactated Ringers 1,000 ML 125 ML IV ×3 (10:01→20:29)
--- NOTE | 2021-02-03 10:49 | W.MEDCONSULT ---
Date of service: 02/03/21 Time of Service: 10:49 Assessment and Plan Assessment and plan (1) Ureteral stone with hydronephrosis: Status: Acute Assessment and plan: Now with right ureteral stent in place. Urine cx pending. (2) HTN (hypertension): Status: Chronic Assessment and plan: On Lisinopril and Metoprolol. Adequate control. Monitor. (3) DVT (deep venous thrombosis): Status: Chronic Assessment and plan: Eliquis was held last PM d/t hematuria; post ureteral stent. Restart Eliquis. Hgb stable. (4) Pneumonia: Status: Acute Assessment and plan: CAP vs aspiration. Cont Rocephin and Vancomycin. Blood culture growing gram + cocci in both bottles. Ambulate. IS History of Present Illness History of Present Illness Chief Complaint: Fever Narrative: This is a 75 yo male currently admitted to the Urology service, Dr. Gamez. He has a PMH of nephrolithiasis, DVT on Eliquis, HTN. He was admitted d/t an obstructing ureteral stone and fevers. Now s/p placement of a ureteral stent on the right. He has continued to have temperature elevations to 38.2. He does endorse an intermittent cough. His WBC count was normal on admission; now 12.6. Blood culture showing a gram positive cocci in both the aerobic and anaerobic bottles. Ceftriaxone and Vancomycin were initiated. His CXR shows mild bilateral patchy infiltrates. He denies CP/palpitations. + discomfort with urination. No Flank pain. No SOA. Review of Systems All systems reviewed & are unremarkable except as noted in HPI and below PFSH Medical History DVT (deep venous thrombosis) History of obstructive sleep apnea CPAP HTN (hypertension) Hx of aortic aneurysm Hx of hemorrhoids Kidney stones Pulmonary emboli Ureteral stone with hydronephrosis Surgical History Hx of appendectomy Hx of cystoscopy Hx of lithotripsy Hx of tonsillectomy Social History Smoking/Tobacco Use Status: Never Smoking risk assessment performed?: Yes Alcohol Intake: never Drug use: Never Do you feel safe at home: Yes Do you feel safe in your relationship?: Yes Exam Const General: cooperative and no acute distress Nutritional Appearance: average body habitus Orientation: alert and oriented x3 Eyes General: appearance normal, both eyes and all related structures Sclera: sclerae normal Resp Effort & Inspection: normal respiratory effort Auscultation: clear to auscultation bilaterally Cardio Rate: regular rate Rhythm: regular rhythm Heart Sounds: S1 normal and S2 normal GI Inspection: normal to inspection Palpation: soft and nontender Skin General skin exam: no rashes or lesions noted Extrem General: no pedal edema and no calf tenderness Psych Appearance: grossly normal Mental Status: mental status grossly normal Speech and Movement: speech and movement normal Affect: normal affect Results Last Vital Signs Temp 36.9 C 02/03/21 08:45 Pulse 100 H 02/03/21 08:45 Resp 18 02/03/21 08:45 BP 128/59 L 02/03/21 08:45 Pulse Ox 91 L 02/03/21 08:45 Labs Result diagrams: 02/03/21 06:45 02/02/21 09:05 Labs: Laboratory Results - last 24 hr 02/02/21 02/03/21 20:25 06:45 WBC 12.60 H D RBC 4.16 L Hgb 12.1 L 12.3 L Hct 35.4 L 35.9 L MCV 86.3 MCH 29.6 MCHC 34.3 RDW 13.4 Plt Count 146 MPV 9.8
[2021-02-03] MEDS: VANCOMYCIN/WATER (PEG) 1 GM/200 ML BAG IVPB (10:59)
[2021-02-03 11:55] LABS: Anion Gap 7.4 mmol/L (3-11); BUN 28 mg/dL (7-18); CO2 24.6 mmol/L (21.0-32.0); CREATININE 1.4 mg/dL (0.70-1.30); Calcium 8.2 mg/dL (8.5-10.1); Chloride 105 mmol/L (98-107); Estimated GFR 49.27 (mL/min/1.73m2); Glucose 103 mg/dL (74-106); NT-proBNP 2749 pg/mL (<300); Potassium 4.1 mmol/L (3.5-5.1); Sodium 137 mmol/L (136-145)
--- NOTE | 2021-02-03 13:13 | PDOC.CMIN ---
- If Service Date Differs Date of service: 02/03/21 Time of Service: 13:13 Care Management Initial Assess REASON FOR HOSPITALIZATION:: Fever and hydronephrosis PAST MEDICAL HISTORY/PAST SURGICAL HISTORY:: Medical History (Updated 02/02/21 @ 11:42 by Matt Gamez MD). DVT (deep venous thrombosis). History of obstructive sleep apnea. CPAP. HTN (hypertension). Hx of aortic aneurysm. Hx of hemorrhoids. Kidney stones. Pulmonary emboli. Ureteral stone with hydronephrosis. Surgical History (Updated 02/02/21 @ 11:32 by Harper Limon). Hx of appendectomy. Hx of cystoscopy. Hx of lithotripsy. Hx of tonsillectomy PREVIOUS FUNCTIONAL STATUS/SOCIAL/FAMILY SUPPORTS:: Augustine lives in [place], [place] with his Tammie. They have one aughter and 2 grandchildren who also live in [place]. Augustine and Tammie spend several months each summer in [place] and stay in the [facility] in [place]. Augustine is retired but worked for the [employer] service for many years. He states that he and his are active, independent and in good health. CURRENT FUNCTIONAL STATUS:: Augustine was sitting up in bed when CM met with him. He was pleasant and engaged easily with CM. He shared his love for [place] and how much he enjoys his time here. He indicated that his suggested that they consider wintering here as well, but Augustine admitted that he prefers a warmer climate when winter approaches.They plan to return home in mid-February but his current condition may change the time line. He anticipates a few weeks clearing the infection and then will have surgery to remove the large stone in his kidney. ADVANCE DIRECTIVES:: has completed but no copy available here (in [place]) Has patient been provided with info about the portal/API?: No Did the patient sign up for the portal?: No CODE STATUS:: Full Code INSURANCE COVERAGE / FINANCIAL ISSUES:: Medicare. BS CURRENT HOME/COMMUNITY SERVICES/EQUIPMENT:: none PRIMARY CARE PHYSICIAN:: none locally. healthcare primarily in [place] POTENTIAL DISCHARGE NEEDS:: Follow up apppointment with urologic surgeon provider PATIENT/FAMILY EDUCATION NEEDS:: Review of discharge instructions, medications, limitations, follow up care, activity, Ask Me Three TRANSPORTATION:: via private vehicle with PLAN:: Augustine will likely return to his hotel with no new services. He will follow up with Urology and possibly have surgery in a few weeks. He will transport with his . CM will continue to support Augustine and assess fro discharge planning concerns.
[2021-02-03 16:23] VITALS: TEMP 37.4
[2021-02-03 20:21] VITALS: BP 177/86; PULSE 79; RESP 20; TEMP 36; O2SAT 92
[2021-02-04] VITALS (7 sets, daily range): BP systolic 125–188; BP diastolic 83–116; PULSE 86–113; RESP 16–18; TEMP 36.3–37.7; O2SAT 91–96
[2021-02-04] MEDS: traMADol 50 MG TAB PO ×2 (01:00→16:31)
[2021-02-04] MEDS: Lactated Ringers 1,000 ML 125 ML IV (03:40)
[2021-02-04] MEDS: VANCOMYCIN/WATER (PEG) 1 GM/200 ML BAG IVPB ×2 (06:32→16:31)
[2021-02-04 07:13] LABS: Abs Immature Grans 0.05 10^3/uL (0.0-0.06); Absolute Basophil Count 0.04 10^3/uL (0.0-0.2); Absolute Eosinophil Count 0.04 10^3/uL (0.0-0.7); Absolute Lymphocyte Count 1.09 10^3/uL (1.2-3.4); Absolute Monocyte Count 0.97 10^3/uL (0.1-0.8); Absolute Neutrophil Count 7.12 10^3/uL (1.2-6.7); Basophils % 0.4; Eosinophils % 0.4; HCT 35.4 % (40.0-50.0); Immature Grans % 0.5; Lymphocytes % 11.7; MCH 29.3 pg (27.0-33.0); MCHC 33.9 % (32.0-36.0); MCV 86.6 fL (80-95); MPV 10.3 fL (8.0-11.0); Monocytes % 10.4; Neutrophils % 76.6; Nucleated RBC 0 %; Platelet Count 141 10^3/uL (130-400); RBC 4.09 10^6/uL (4.36-5.78); RDW 12.9 % (11.8-14.1); RDW-SD 40.8 fL; WBC 9.31 10^3/uL (4.4-10.8)
[2021-02-04 07:37] LABS: ALT 102 U/L (16-63); AST 73 U/L (15-37); Albumin 2.9 g/dL (3.4-5.0); Alkaline Phosphatase 70 U/L (46-116); Anion Gap 9.7 mmol/L (3-11); BUN 16 mg/dL (7-18); Bilirubin, Total 0.9 mg/dL (0.2-1.0); CO2 24.3 mmol/L (21.0-32.0); Chloride 99 mmol/L (98-107); Glucose 106 mg/dL (74-106); Potassium 3.4 mmol/L (3.5-5.1); Sodium 133 mmol/L (136-145); Total Protein 6.5 g/dL (6.4-8.2)
[2021-02-04] MEDS: Azithromycin 250 MG TAB 500 MG PO (08:39)
[2021-02-04] MEDS: Metoprolol 25 MG TAB PO ×2 (08:40→12:06)
[2021-02-04] MEDS: Lisinopril 10 MG TAB PO (08:40)
[2021-02-04] MEDS: Cholecalciferol (Vitamin D3) 1,000 UNIT TAB 2000 UNITS PO (08:40)
[2021-02-04] MEDS: Potassium Chloride 20 MEQ TABCR 40 MEQ PO (09:51)
[2021-02-04] MEDS: Apixaban 5 MG TAB PO ×2 (09:51→20:24)
[2021-02-04] MEDS: cefTRIAXone 1 GM/50 ML BAG IVPB (09:51)
--- NOTE | 2021-02-04 13:54 | CMPROGNOTE_ITS ---
- If Service Date Differs Date of service: 02/04/21 Time of Service: 13:54 Care Management Progress Note S/O: Augustine was sitting up in bed when CM met with him. He reported that he is feeling well today, but not at his best. He was pleasant and engaged in conversation. He discussed living in [place] for the summer/fall, but does not intend on staying for the winter, as [place]. He anticipates leaving [place] mid February. He did report that he has been connected to a local PCP for his needs while in [place], Dr. Christina from [facility]. CM updated his chart with this information. Per report, he may be changed to oral abx tomorrow and at that time will be able to be discharged. Augustine stated that he does not feel that he needs additional support at home, as he and his are very independent. CM will continue to follow. A: Augustine is a 75 year old male admitted to [facility] on 02/02/21 with a ureteral stone. P: Anticipate Augustine will return to his [facility] with no services. He will follow up with Urology and possibly have surgery in a few weeks. He will transport with his . CM will continue to support Augustine and assess fro discharge planning concerns.
--- NOTE | 2021-02-04 14:23 | W.PM.PROGNOT ---
Date of Service Date of service: 02/04/21 Time of Service: 14:23 Assessment and Plan Assessment and plan (1) Pneumonia: Status: Acute Assessment and plan: He is clinically improving. Based on his cultures so far, we should be able to switch him to oral Augmentin at the time of discharge. Based on current anesthesia recommendations, we will need to wait 2 to 4 weeks after he completes his antibiotic before subjecting this gentleman to another anesthetic. We will plan on discharging him tomorrow morning on Augmentin. I will ask my staff to book his surgery for 3 to 5 weeks from now (assuming that he does not pass the stone and that his pneumonia improves). (2) Ureteral stone with hydronephrosis: Status: Acute (3) Fever: Status: Acute Subjective Subjective Interval history since last seen: He is feeling better with the less of a headache and sinus drainage. He has remained afebrile for 24 hours. Exam Narrative Exam Narrative: He does not appear septic or toxic His vital signs are documented elsewhere His urine is red-tinged but transparent He is awake and alert Objective Last Vital Signs Temp 36.8 C 02/04/21 11:20 Pulse 109 H 02/04/21 11:20 Resp 18 02/04/21 11:20 BP 188/116 H 02/04/21 11:20 Pulse Ox 95 02/04/21 11:20 Laboratory Results - last 24 hr 02/04/21 02/04/21 06:03 06:03 WBC 9.31 RBC 4.09 L Hgb 12.0 L Hct 35.4 L MCV 86.6 MCH 29.3 MCHC 33.9 RDW 12.9 Plt Count 141 MPV 10.3 Immature Gran % 0.5 Neutrophils % 76.6 Lymphocytes % 11.7 Monocytes % 10.4 Eosinophils % 0.4 Basophils % 0.4 Nucleated RBC % 0 Absolute Neutrophils 7.12 H Absolute Lymphocytes 1.09 L Absolute Monocytes 0.97 H Absolute Eosinophils 0.04 Absolute Basophils 0.04 Sodium 133 L Potassium 3.4 L Chloride 99 Carbon Dioxide 24.3 Anion Gap 9.7 BUN 16 D Creatinine 1.0 Estimated GFR/1.73 m2 >= 60.00 Glucose 106 Calcium 8.0 L Total Bilirubin 0.9 AST 73 H ALT 102 H Alkaline Phosphatase 70 Total Protein 6.5 Albumin 2.9 L
[2021-02-04] MEDS: Acetaminophen 325 MG TAB 650 MG PO (23:54)
[2021-02-04] MEDS: Lactated Ringers 1,000 ML 30 ML IV (23:55)
[2021-02-05] MEDS: VANCOMYCIN/WATER (PEG) 1 GM/200 ML BAG IVPB (02:17)
[2021-02-05 06:50] LABS: HGB 13.5 g/dL (13.5-17.5)
--- NOTE | 2021-02-05 07:15 | W.PM.DS.N ---
Date of service: 02/05/21 Time of Service: 07:15 DS: Diagnosis Discharge Diagnosis (1) Pneumonia: Status: Acute (2) Ureteral stone with hydronephrosis: Status: Acute (3) Fever: Status: Acute Discharge Plan Disposition Patient Disposition: HOME Condition: Stable Discharge Details Reason For Visit: Ureteral Stone Admit Date/Time: 02/02/21 12:49 Admit Provider: Matt Gamez Attending Provider: Matt Gamez Primary Care Provider: Glenn Christina Hospital Course Hospital Course: The patient was admitted through the emergency room. He was found to be febrile and have an obstructing right ureteral stone. We suspected an infection in the right kidney trapped behind the ureteral stone. We brought him to the operating room urgently and placed a right ureteral stent. His flank pain improved, but he remained febrile. His urine culture ultimately showed no bacterial growth, but his blood cultures showed staph (not staph aureus). His admitting chest x-ray showed mild patchy infiltrates, so he was treated with IV vancomycin for suspected pneumonia. His fever and elevated white count improved. He is being discharged to home on oral Augmentin. Home Meds and New Rx's Prescriptions: New amoxicillin-pot clavulanate [Augmentin] 875-125 mg tablet 1 tab PO Q12H Qty: 12 RF: 0 tramadol 50 mg tablet 50 mg PO Q6H PRN (Reason: pain) Qty: 15 RF: 0 Continued lisinopril 10 mg tablet 10 mg PO DAILY RF: 0 metoprolol tartrate 50 mg tablet 25 mg PO DAILY RF: 0 Eliquis 5 mg tablet 5 mg PO BID RF: 0 acetaminophen 500 mg Tablet 1,000 mg PO Q6H PRNRF: 0 cholecalciferol (vitamin D3) [Vitamin D3] 25 mcg (1,000 unit) Capsule 50 mcg PO DAILY RF: 0 Discharge Instructions Additional Instructions: My office will contact the patient to arrange for a surgical procedure (cystoscopy, stent removal, ureteroscopy with holmium laser lithotripsy of his ureteral stone). Because of the pneumonia, anesthesia cannot be given safely until 2 to 4 weeks after he completes his antibiotic. Please send the patient home with a strainer for his urine Stand Alone Forms: Nursing Discharge Form Activity:: Activity as Tolerated Equipment/Supplies:: No Equipment Needed Diet:: As Tolerated Discharge Orders Discharge Orders: Discharge Order (Routine); Ordered 02/05/21 Ordered By: Matt Gamez DS: Summary Time Spent with Patient providing and/or coordinating discharge services: Greater than 30 minutes Status at Discharge Functional status at discharge: independent ambulation Overall status at discharge: patient is back to baseline Mental Status: mental status grossly normal Speech and Movement: speech and movement normal Mood: congruent mood Affect: normal affect Exam Narrative Exam Narrative: At the time of surgery, he looks well. He does not appear septic or toxic His vital signs are documented elsewhere. He has been afebrile for over 24 h His lungs are clear Cardiac exam shows a regular rate and rhythm His abdomen is soft with no guarding or rebound tenderness His Edmondson catheter is draining transparent urine He is awake and alert Psych Mental Status: mental status grossly normal Speech and Movement: speech and movement normal Mood: congruent mood Affect: normal affect DS: Data Vitals/I&O Vitals and I&O: Vital Signs Temperature 37 C 02/04/21 23:15 Temperature Source Tympanic 02/04/21 23:15 Pulse 113 H 02/04/21 23:15 Pulse Rhythm Regular 02/05/21 06:58 Pulse 112 H 02/02/21 11:15 Respiratory Rate 18 02/04/21 23:15 Respiratory Effort Non-Labored 02/05/21 06:58 Respiratory Depth Normal 02/05/21 06:58 Respiratory Pattern Normal 02/05/21 06:58 Blood Pressure 125/83 02/04/21 23:15 Blood Pressure Mean 44 02/02/21 11:15 Blood Pressure Position Supine 02/02/21 08:48 Pulse Oximetry 91 L 02/04/21 23:15 Respiratory End-tidal CO2 30 02/02/21 13:40 Oxygen Delivery Method Room Air 02/04/21 23:15 Oxygen Flow Rate 0 02/04/21 23:15 Pain Level 5 02/04/21 23:54 Comment 02/04/21 01:00 Intake & Output 02/04/21 02/04/21 02/05/21 11:59 23:59 11:59 Intake Total 1991.084 / 2337.917 345.833 / 2337.917 200 / 200 Output Total 3150 / 5850 2700 / 5850 1650 / 1650 Balance -1157.916 / -3512.083 -2354.167 / -3512.083 -1450 / -1450 Intake: IV 1752.084 / 2097.917 345.833 / 2097.917 200 / 200 Oral 240 / 240 Output: Urine 3150 / 5850 2700 / 5850 1650 / 1650 Other: Urine Color Russell Dark Viji Russell Urine Appearance Clear Clear Clear Comment no clots urine is pink/scarlet toned. Data Completed and Pending Labs on day of discharge: Labs from last 24 hours 02/05/21 02/05/21 02/04/21 11:00 06:15 06:03 WBC 9.31 RBC 4.09 L Hgb 13.5 12.0 L Hct 39.0 L 35.4 L MCV 86.6 MCH 29.3 MCHC 33.9 RDW 12.9 Plt Count 141 MPV 10.3 Immature Gran % 0.5 Neutrophils % 76.6 Lymphocytes % 11.7 Monocytes % 10.4 Eosinophils % 0.4 Basophils % 0.4 Nucleated RBC % 0 Absolute Neutrophils 7.12 H Absolute Lymphocytes 1.09 L Absolute Monocytes 0.97 H Absolute Eosinophils 0.04 Absolute Basophils 0.04 Sodium Potassium Chloride Carbon Dioxide Anion Gap BUN Creatinine Estimated GFR/1.73 m2 Glucose Calcium Total Bilirubin AST ALT Alkaline Phosphatase Total Protein Albumin Vancomycin Trough Pending 02/04/21 06:03 WBC RBC Hgb Hct MCV MCH MCHC RDW Plt Count MPV Immature Gran % Neutrophils % Lymphocytes % Monocytes % Eosinophils % Basophils % Nucleated RBC % Absolute Neutrophils Absolute Lymphocytes Absolute Monocytes Absolute Eosinophils Absolute Basophils Sodium 133 L Potassium 3.4 L Chloride 99 Carbon Dioxide 24.3 Anion Gap 9.7 BUN 16 D Creatinine 1.0 Estimated GFR/1.73 m2 >= 60.00 Glucose 106 Calcium 8.0 L Total Bilirubin 0.9 AST 73 H ALT 102 H Alkaline Phosphatase 70 Total Protein 6.5 Albumin 2.9 L Vancomycin Trough Preliminary micro results at discharge 02/02/21 09:13 Blood Culture - Preliminary Blood Staph Sp., Not Aureus 02/02/21 09:05 Blood Culture - Preliminary Blood Gram Positive Cocci PFSH Medical History DVT (deep venous thrombosis) History of obstructive sleep apnea CPAP HTN (hypertension) Hx of aortic aneurysm Hx of hemorrhoids Kidney stones Pulmonary emboli Ureteral stone with hydronephrosis Surgical History Hx of appendectomy Hx of cystoscopy Hx of lithotripsy Hx of tonsillectomy Social History Smoking/Tobacco Use Status: Never Smoking risk assessment performed?: Yes Alcohol Intake: never Drug use: Never Do you feel safe at home: Yes Do you feel safe in your relationship?: Yes
--- NOTE | 2021-02-05 07:29 | W.PM.PROGNOT ---
Date of Service Date of service: 02/05/21 Time of Service: 07:30 Assessment and Plan Assessment and plan (1) Pneumonia: Status: Acute Assessment and plan: We will switch to oral Augmentin and discharge him to home today. After speaking with my anesthesia colleagues, it is not recommended that we put him through a general anesthetic until he completes his antibiotics, his pulmonary symptoms improve and we wait an additional 2 to 4 weeks. My office will contact the patient to make arrangements for a cystoscopy, stent removal, right ureteroscopy with holmium laser lithotripsy and stone extraction. If he happens to pass his stone in the interim, he would not need the additional surgery under anesthesia. I would be able to remove his ureteral stent in the office with local anesthesia. (2) Ureteral stone with hydronephrosis: Status: Acute (3) Fever: Status: Acute Subjective Subjective Interval history since last seen: He is feeling much better with no fevers or chills. His headache has improved dramatically. He has occasional twinges of pain in the right flank that can last up to 15 to 30 sec. These episodes of pain are well maintained with Tylenol and tramadol. Exam Narrative Exam Narrative: He has remained afebrile His urine is transparent but blood-tinged He is awake and alert Objective Last Vital Signs Temp 37 C 02/04/21 23:15 Pulse 113 H 02/04/21 23:15 Resp 18 02/04/21 23:15 BP 125/83 02/04/21 23:15 Pulse Ox 91 L 02/04/21 23:15 Laboratory Results - last 24 hr 02/04/21 02/05/21 06:03 06:15 Hgb 13.5 Hct 39.0 L Sodium 133 L Potassium 3.4 L Chloride 99 Carbon Dioxide 24.3 Anion Gap 9.7 BUN 16 D Creatinine 1.0 Estimated GFR/1.73 m2 >= 60.00 Glucose 106 Calcium 8.0 L Total Bilirubin 0.9 AST 73 H ALT 102 H Alkaline Phosphatase 70 Total Protein 6.5 Albumin 2.9 L
[2021-02-05 07:45] VITALS: BP 164/98; PULSE 116; RESP 18; TEMP 36.9; O2SAT 93
[2021-02-05] MEDS: Lisinopril 10 MG TAB PO (07:56)
[2021-02-05] MEDS: Apixaban 5 MG TAB PO (07:56)
[2021-02-05] MEDS: Metoprolol CR 25 MG TABCR PO (07:56)
[2021-02-05] MEDS: Cholecalciferol (Vitamin D3) 1,000 UNIT TAB 2000 UNITS PO (07:56)
--- NOTE | 2021-02-05 08:36 | DI.RAD_ITS ---
Exam(s) XR ABDOMEN FLAT PLATE EXAM: XR ABDOMEN FLAT PLATE CLINICAL HISTORY: monitor known right ureteral stone TECHNIQUE: COMPARISON: CT CT RENAL COLIC WO from 02/01/2021 XR RETROGRADE IN OR from 02/02/2021 XR RETROGRADE IN OR from 02/02/2021 FINDINGS: Two views were obtained. There is a right ureteral stent in position. There are multiple pelvic phl eboliths. I am uncertain whether a distal right ureteral stone seen on recent CT examination remains in the distal right ureter. Additional evaluation oblique views or IVP may be obtained if clinicall y indicated to evaluate possible persistent distal right ureteral stone. IMPRESSION: RADIATION DOSE DELIVERED: Total DLP
--- NOTE | 2021-02-05 11:51 | PDOC.CMDIS ---
- If Service Date Differs Date of service: 02/05/21 Time of Service: 11:51 LACE Index Scoring Tool - Questions: Length of Stay (in days): 3 Acuity (Admit via E.D.?): Yes E.D. Visits: 1 - Answers: Total Score: 7 Risk of Readmission: Low Risk Care Management Discharge Reason for Hospitalization: Fever and hydronephrosis Discharge Plan: Augustine will return to his hotel with no new services. He will follow up with Urology and possibly have surgery in a few weeks. He will transport with his . Patient/Family Education Needs: Review of discharge instructions, medications, limitations, follow up care, activity, Ask Me Three
== END 2021-02-05 10:28 | disposition home or self-care (01) ==
LOC: ER 11:10 → SUR 11:18 → MS 13:56
PROVIDERS: Family Medicine; Admitting Provider Urology; Emergency Provider Registered Nurse Emergency; PCP Family Medicine; Visit Provider Urology
PROC: (CPT 52332; principal; 2021-02-02 12:30)
DX: R50.9 Fever, unspecified (principal); N13.2 Hydronephrosis with renal and ureteral calculous obstruction; I71.4 Abdominal aortic aneurysm, without rupture; Z79.01 Long term (current) use of anticoagulants; Z86.711 Personal history of pulmonary embolism; Z86.718 Personal history of other venous thrombosis and embolism; G47.33 Obstructive sleep apnea (adult) (pediatric); I10 Essential (primary) hypertension; Z20.822 Contact with and (suspected) exposure to COVID-19
CPT/HCPCS: 52332; 36415; 80048; 80053; 85027; 87040; 87077; 87635; 99217; 99219; 99225; 71045; 74018; 74420; 80202; 81003; 81015; 83605; 83735; 83880; 85014; 85018; 85025; 85610; 85730; 87086; 87186; 94667; 99202; G0378; J0696; J2001; J2370; J2405; Q9967

== ENCOUNTER 2021-02-15 01:46 | Outpatient (CLI) | payer MEDICARE, BC, SELFPAY ==
--- NOTE | 2021-02-15 14:53 | DI.US_ITS ---
APPROVED REPORT EXAM: Comprehensive 2D, Doppler, and color-flow Echocardiogram Patient Location: Out-Patient Flower Picker: Melissa Mosley RDCS (AE) Indications: Evaluate for vegetation, Bacteremia Other Information Study Quality: Adequate Conclusion Normal left ventricular wall thickness and chamber size. Estimated ejection fraction is approximatel y 55%. There are no apparent segmental wall motion abnormalities Normal right ventricular size and systolic function The left atrium is mildly dilated. The right atrium is normal in size Sclerotic trileaflet aortic valve with moderate regurgitation Mitral annular calcification. Mildly thickened mitral leaflets. Moderate eccentric mitral regurgita tion Normal tricuspid valve with trace regurgitation. Normal estimated right ventricular systolic pressur e Normal pulmonic valve with trace regurgitation Dilated aortic root and ascending aorta Wall motion Left Ventricle The left ventricle is normal size. The left ventricular systolic function is normal. The left ventric ular ejection fraction is within the normal range. There is normal left ventricular wall thickness. U nable to assess LV wall thickness. Borderline concentric left ventricular hypertrophy. There is no ve ntricular septal defect visualized. LVEF is 55%. Right Ventricle The right ventricle is normal size. Right ventricular systolic function is grossly normal. The RVSP i s 27.6 mmHg. Atria Left atrium is mildly dilated. The right atrium size is normal. The interatrial septum is intact with no evidence for an atrial septal defect. Aortic Valve The Aortic valve is sclerotic. Aortic valve is trileaflet. There is no aortic valvular stenosis. Mode rate aortic regurgitation. Mitral Valve Mild mitral annular calcification. Mitral valve leaflets are mildly thickened. No evidence of mitral valve stenosis. Moderate mitral regurgitation. Mitral regurgitation jet is eccentrically directed. Tricuspid Valve The tricuspid valve is normal in structure. There is no tricuspid valve stenosis. Trace tricuspid reg urgitation. Pulmonic Valve The pulmonary valve is normal in structure. There is no pulmonic valvular stenosis. Trace pulmonic re gurgitation. Great Vessels Aortic root is severely dilated.4.79 cm The ascending aorta is severely dilated.4.35 cm Aortic arch i s normal in caliber. IVC is normal in size and collapses >50% with inspiration. Pericardium There is no pericardial effusion. 2D Dimensions IVSD d PLAX 1.21 cm M: 0.6-1.2 LV Vol A2C d MOD 101.7 mL LVPW d PLAX 1.20 cm M: 0.6 - 1.2 LV Vol A4C d MOD 181.4 mL LVID d PLAX 4.84 cm M: 4.2 - 5.8 LV EF A4C MOD 55.3 % LVDs 3.40 cm M: 2.5 - 4.0 LV EF A2C MOD 56.9 % Ao Root d 4.79 cm M: 3.1 - 3.7 LV EF Biplane MOD 56.2 % RA Area A4C 19.71 cm2 SV 79.07 mL RA Vol/ BSA A4C s A-L 28.9 mL/m2 SV Index 39.30 mL/m2 Ao Asc Diam d 4.35 cm M: 2.6 - 3.4 LV EF Teichholz 55.8 % LVEF (Stallings's) 56.20 % M: 52 - 72 LV Volume 105.31 mL M: 62 - 150 LV Volume Index 52.39 mL/m2 M: 34 - 74 LV Vol Biplane MOD 140.7 mL FS 29.15 % M-Mode TAPSE 1.61 cm (M/F) >1.7 LV Diastology MV E Vmax 0.80 (0.4-1.3 m/s) Aortic Valve LVOT Area 2.80 cm2 AoV Area Vmax 2.19 cm2 LVOT Vmax 0.88 m/s AoV Area/ BSA (Vmax) 1.09 cm2/m2 LVOT Mean Barrie. 0.64 m/s GEORGES Mean Barrie. 2.20 cm2 LVOT Peak Grad 3.1 mmHg GEORGES Mean Barrie. Index 1.09 cm2/m2 LVOT Mean Grad 1.8 mmHg AR DT 2514 msec LVOT VTI 0.134 m AR PHT 729 msec LVOT Diam s 1.85 cm AoV Vmax 1.13 m/s Velocity Ratio 0.77 AoV Mean Barrie. 0.81 m/s AoV Peak Grad 5.1 mmHg LVOT SV 37.63 mL AoV Mean Grad 3.0 mmHg AoV VTI 0.198 m AoV Area VTI 1.90 cm2 AoV Area/ BSA (VTI) 0.94 cm/m2 Mitral Valve MV DT 138 (160-240 msec) MR Vmax 5.31 m/s MV PHT 40 msec MR VTI 1.364 m MV Area PHT 5.51 cm2 MR Peak Grad 112.9 mmHg MV VTI 0.177 m MR Mean Grad 84.0 mmHg MV Area VTI 2.13 (4.0-6.0 cm2) Pulmonary Valve PV Vmax 0.77 (0.5-1.5 m/s) RVOT Peak Gr. 0.98 mmHg PV Peak Grad 2.3 mmHg RVOT Mean Gr. 0.60 mmHg PV Mean Grad 1.3 mmHg RVOT VTI 0.088 m PV VTI 0.112 m RVOT Vmax 0.50 m/s Tricuspid Valve TR Peak Grad 24.6 mmHg TR Vmax 2.48 m/s RA Pressure 3.00 mmHg RVSP (TR) 27.6 mmHg
== END 2021-02-15 02:06 ==
PROVIDERS: PCP Family Medicine; Visit Provider Family Medicine
DX: R78.81 Bacteremia (principal); I08.0 Rheumatic disorders of both mitral and aortic valves; I77.812 Thoracoabdominal aortic ectasia
CPT/HCPCS: 93306

== ENCOUNTER 2021-02-23 03:06 | Outpatient (CLI) | payer MEDICARE, BC, SELFPAY ==
[2021-02-23 11:37] LABS: Source Nasal/Nares
[2021-02-23 23:35] LABS: COVID-19 PCR Negative (Negative)
== END 2021-02-23 03:07 | disposition home or self-care (01) ==
LOC: LBO 03:06
PROVIDERS: PCP Family Medicine; Visit Provider Urology
DX: Z20.822 Contact with and (suspected) exposure to COVID-19 (principal); Z01.818 Encounter for other preprocedural examination
CPT/HCPCS: 87635

== ENCOUNTER 2021-02-25 07:08 | Day surgery (SDC) | payer MEDICARE, BC, SELFPAY ==
--- NOTE | 2021-02-25 07:00 | DI.RAD_ITS ---
Exam(s) XR RETROGRADE IN OR EXAM: XR RETROGRADE IN OR CLINICAL HISTORY: RIGHT URETRAL STONE TECHNIQUE: 2D and realtime digital imaging was performed. CONTRAST MATERIAL: Refer to procedure report. COMPARISON: No exams were available for comparison FINDINGS: Fluoroscopy was provided for Dr. Gamez during the performance of a retrograde evaluation of the tangela l collecting system. Please refer to the procedure report for complete details. Ka,r=0.6669 mGy IMPRESSION: RADIATION DOSE DELIVERED:
--- NOTE | 2021-02-25 07:03 | W.ANESPRE ---
General Info Date of Service Date Performed: 02/25/21 Height: 5 ft 10.87 in Weight: 80.739 kg Body Mass Index (BMI): 24.9 Surgical Procedure: Operation Date: 02/25/21 08:40 Proposed Procedures Side Surgeon p cysto,remove rt ureteral stent, rt retrograde, rt ureteroscopy, holmium laser Right Matt Gamez MD Meds Allergies and Home Medications Allergies Allergy/AdvReac Type Severity Reaction Status Date / Time oxycodone Allergy Unknown Unverified 02/25/21 07:30 Sulfa (Sulfonamide Allergy Hives Unverified 02/25/21 07:30 Antibiotics) meperidine [From Demerol] AdvReac Severe Low BP Unverified 02/25/21 07:30 steroid Allergy vision loss Uncoded 02/25/21 07:30 Home Medication Medication Instructions Recorded Eliquis 5 mg PO BID 02/02/21 acetaminophen 1,000 mg PO Q6H PRN 02/02/21 cholecalciferol (vitamin D3) 50 mcg PO DAILY 02/02/21 [Vitamin D3] lisinopril 10 mg PO DAILY 02/02/21 metoprolol tartrate 25 mg PO BID 02/02/21 tramadol 50 mg PO Q6H PRN #15 tab 02/05/21 C,E,zinc,copper [id number] 1 cap PO DAILY 02/25/21 [Ocuvite Adult 50 Plus] ipratropium bromide 1 spray INTRANASAL BID PRN 02/25/21 Current Visit Medications: Current Medications Generic Name Dose Route Start Last Admin Trade Name Freq PRN Reason Stop Dose Admin Ringer's Solution 1,000 mls @ 80 mls/hr 02/25/21 06:00 IV 03/26/21 23:59 INFUSION LARON Cefazolin Sodium/Dextrose 1 gm in 50 mls @ 100 mls/hr 02/25/21 06:00 Ancef Duplex IVPB 02/25/21 16:00 PREOP LARON IV Miscellaneous Supplies 1 each 02/25/21 06:00 Iv Access IV 03/26/21 23:59 DIRECTED LARON Sodium Chloride 0 ml 02/25/21 06:00 Normal Saline Flush 10 Ml Syr IV 03/26/21 23:59 PRN PRN Sodium Chloride 0 ml 02/25/21 06:00 Normal Saline 10 Ml Vial IJ 03/26/21 23:59 DIRECTED PRN Sterile Water 0 ml 02/25/21 06:00 Water,Injection,Sterile 10 Ml Vial IJ 03/26/21 23:59 DIRECTED PRN PFSH Active Problems Active Problems: Problem Status Onset Code Fever R50.9 Pneumonia J18.9 Bacteremia due to coagulase-negative Staphylococcus R78.81, B95.7 Ureteral stone with hydronephrosis N13.2 HTN (hypertension) I10 DVT (deep venous thrombosis) I82.409 Kidney stones N20.0 Medical History Medical History DVT (deep venous thrombosis) History of obstructive sleep apnea CPAP HTN (hypertension) Hx of aortic aneurysm Hx of hemorrhoids Kidney stones Moderate aortic regurgitation Moderate mitral regurgitation Pulmonary emboli Ureteral stone with hydronephrosis Surgical History Surgical History Hx of appendectomy Hx of cystoscopy Hx of lithotripsy Hx of tonsillectomy Tobacco Smoking/Tobacco Use Status: Never Alcohol Alcohol Intake: never Substance Use Substance use: Never Substance use type: does not use Vital Signs and Lab Results Lab Results Blood Type / Crossmatch: No Data to Display Complete Blood Count: White Blood Count 9.31 10^3/uL (4.4-10.8) 02/04/21 06:03 02/04/21 Red Blood Count 4.09 10^6/uL (4.36-5.78) L 02/04/21 06:03 02/04/21 Hemoglobin 13.5 g/dL (13.5-17.5) 02/05/21 06:15 02/05/21 Hematocrit 39.0 % (40.0-50.0) L 02/05/21 06:15 02/05/21 Platelet Count 141 10^3/uL (130-400) 02/04/21 06:03 02/04/21 Venous Blood Lactate 1.7 mmol/L (0.6-1.4) H 02/02/21 09:05 02/02/21 Complete Metabolic Panel: Sodium Level 133 mmol/L (136-145) L 02/04/21 06:03 02/04/21 Potassium Level 3.4 mmol/L (3.5-5.1) L 02/04/21 06:03 02/04/21 Chloride Level 99 mmol/L (98-107) 02/04/21 06:03 02/04/21 Carbon Dioxide Level 24.3 mmol/L (21.0-32.0) 02/04/21 06:03 02/04/21 Blood Urea Nitrogen 16 mg/dL (7-18) 02/04/21 06:03 02/04/21 Creatinine 1.0 mg/dL (0.70-1.30) 02/04/21 06:03 02/04/21 Estimated GFR/1.73 m2 >= 60.00 (mL/min/1.73m2) 02/04/21 06:03 02/04/21 Magnesium Level 2.1 mg/dL (1.8-2.4) 02/02/21 09:05 02/02/21 Calcium Level 8.0 mg/dL (8.5-10.1) L 02/04/21 06:03 02/04/21 Albumin 2.9 g/dL (3.4-5.0) L 02/04/21 06:03 02/04/21 Glucose Level 106 mg/dL (74-106) 02/04/21 06:03 02/04/21 Liver Function Panel: Alanine Aminotransferase (ALT/SGPT) 102 U/L (16-63) H 02/04/21 06:03 02/04/21 Aspartate Amino Transf (AST/SGOT) 73 U/L (15-37) H 02/04/21 06:03 02/04/21 Coagulation Panel: INR International Normalized Ratio 1.1 (0.9-1.1) 02/02/21 09:05 02/02/21 Prothrombin Time 11.0 sec (9.3-11.0) 02/02/21 09:05 02/02/21 Activated Partial Thromboplast Time 23.8 sec (21.0-27.5) 02/02/21 09:05 02/02/21 Cardiac Panel: IP-Edy-I-Type Natriuretic Peptide 2749 pg/mL (<300) H 02/03/21 06:45 02/03/21 Arterial Blood Gas: No Data to Display Venous Blood Gas: No Data to Display Pancreas Panel: No Data to Display Thyroid Panel: No Data to Display Infectious Disease: Coronavirus (COVID-19)(PCR) Negative (Negative) 02/23/21 09:43 02/23/21 Coronavirus 2019 Source Nasal/Nares 02/23/21 09:43 02/23/21 Blood Cultures: No Data to Display Toxicology Panel: No Data to Display Imaging and Studies Imaging and Studies Echocardiogram Summary: Admission Date: 02/15/21 : 1945 Age: 75 APPROVED REPORT EXAM: Comprehensive 2D, Doppler, and color-flow Echocardiogram Patient Location: Out-Patient Director Validation: Melissa Mosley RDCS (AE) Indications: Evaluate for vegetation, Bacteremia Other Information Study Quality: Adequate Conclusion Normal left ventricular wall thickness and chamber size. Estimated ejection fraction is approximately 55%. There are no apparent segmental wall motion abnormalities Normal right ventricular size and systolic function The left atrium is mildly dilated. The right atrium is normal in size Sclerotic trileaflet aortic valve with moderate regurgitation Mitral annular calcification. Mildly thickened mitral leaflets. Moderate eccentric mitral regurgitation Normal tricuspid valve with trace regurgitation. Normal estimated right ventricular systolic pressure Normal pulmonic valve with trace regurgitation Dilated aortic root and ascending aorta Anesthesia Assessment and Plan Anesthesia History Personal History: No History of Anesthesia Complications Family History: No Family History of Anesthesia Complications Exercise Tolerance Exercise Tolerance: Metabolic Equivalents>4 Pertinent Negatives Pertinent Negatives: No Symptoms of GERD, No Major Cardiovascular Symptoms or Complaints and No Major Pulmonary Symptoms or Complaints (GERMAIN uses CPAP) Cardiac & Pulmonary Exam Cardiac Exam: Normal S1/S2 Heart Sounds Pulmonary Exam: Clear Bilateral Breath Sounds Airway Exam Known Difficult Airway: No Mallampati Class: 2 Mouth Opening: Normal (> 3cm) Thyromental Distance: Greater than 3 cm Neck Range of Motion: Limited ROM (Slight limitation) Neck Circumference: Normal Teeth Condition: Normal Dentition and Dental Caries Airway Comments: Front top teeth chipped ASA Classification ASA Score: ASA 2 Emergency Case?: No NPO Status NPO Status: NPO Clears >2 hours, Solids >8 hours Anesthesia Plan Resuscitation Status: Full Code Anesthesia Technique: General Anesthesia Airway Planned: Natural Airway Monitors Used: Standard Monitors
[2021-02-25 07:37] VITALS: BP 152/82; PULSE 65; RESP 16; TEMP 36.4; O2SAT 96
[2021-02-25] MEDS: Lactated Ringers 1,000 ML 80 ML IV (08:10)
[2021-02-25 08:11] VITALS: BMI 24.9
--- NOTE | 2021-02-25 08:16 | W.PM.HP.N ---
Date of service: 02/25/21 Time of Service: 08:16 Assessment and Plan Assessment and plan (1) Calculus of distal right ureter: Status: Acute Assessment and plan: We plan to remove his ureteral stent, perform ureteroscopy and holmium laser lithotripsy of his stone. He and his plan to return to [place] next week. We will make sure all of his records are sent to his local urologist and make sure his followup renal US is arranged for 4 to 8 weeks post operatively. History of Present Illness History of Present Illness Chief Complaint: Right ureteral stone Narrative: This is a 76-year-old gentleman who resides in [place] but spends time in [place] as well. He has a history of kidney stones and developed right abdominal pain. He was found to have a 12 by 5 mm right distal ureteral stone. He became febrile and we suspected a urinary source, so we placed a ureteral stent. The source of his fever was ultimately shown to be respiratory. His respiratory symptoms have improved. He presents for stone manipulation. He has passed a small stone fragment. He describes urinary frequency and urgency. He has failed oxybutynin due to side effects. He was provided with a prescription for Myrbetriq, but he has not tried the medication. Review of Systems Narrative: No fevers or chills Wears glasses. 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 No gout PFSH Medical History (Updated 02/25/21 @ 08:17 by Matt Gamez MD) Calculus of distal right ureter DVT (deep venous thrombosis) History of obstructive sleep apnea CPAP HTN (hypertension) Hx of aortic aneurysm Hx of hemorrhoids Kidney stones Moderate aortic regurgitation Moderate mitral regurgitation Pulmonary emboli Ureteral stone with hydronephrosis Surgical History Hx of appendectomy Hx of cystoscopy Hx of lithotripsy Hx of tonsillectomy Social History Smoking/Tobacco Use Status: Never Smoking risk assessment performed?: Yes Alcohol Intake: never Drug use: Never Substance use type: does not use Do you feel safe at home: Yes Do you feel safe in your relationship?: Yes Meds Allergies and Home Medications Allergies Allergy/AdvReac Type Severity Reaction Status Date / Time oxycodone Allergy Unknown Unverified 02/25/21 07:30 Sulfa (Sulfonamide Allergy Hives Unverified 02/25/21 07:30 Antibiotics) meperidine [From Demerol] AdvReac Severe Low BP Unverified 02/25/21 07:30 steroid Allergy vision loss Uncoded 02/25/21 07:30 Home Medications Medication Instructions Recorded Confirmed Type Eliquis 5 mg PO BID 02/02/21 02/23/21 History acetaminophen 1,000 mg PO Q6H PRN 02/02/21 02/23/21 History cholecalciferol (vitamin D3) 50 mcg PO DAILY 02/02/21 02/25/21 History [Vitamin D3] lisinopril 10 mg PO DAILY 02/02/21 02/25/21 History metoprolol tartrate 25 mg PO BID 02/02/21 02/25/21 History tramadol 50 mg PO Q6H PRN #15 tab 02/05/21 02/23/21 Rx C,E,zinc,copper [id number] 1 cap PO DAILY 02/25/21 02/25/21 History [Ocuvite Adult 50 Plus] ipratropium bromide 1 spray INTRANASAL BID PRN 02/25/21 02/25/21 History Exam Const General: cooperative and comfortable Neck Neck: supple Resp Effort & Inspection: normal respiratory effort Auscultation: clear to auscultation bilaterally Cardio Rate: regular rate Rhythm: regular rhythm GI Palpation: soft and no masses Neuro General: patient alert, patient awake and patient oriented x3 Results Last Vital Signs Temp 36.4 C L 02/25/21 07:37 Pulse 65 02/25/21 07:37 Resp 16 02/25/21 07:37 BP 152/82 H 02/25/21 07:37 Pulse Ox 96 02/25/21 07:37
[2021-02-25] MEDS: ceFAZolin 1 GM/50 ML BAG IVPB (09:04)
[2021-02-25] MEDS: Lidocaine 2% Jelly 6 ML SYR (09:05)
--- NOTE | 2021-02-25 09:23 | W.PM.DSUDISC ---
Discharge Plan Disposition Patient Disposition: HOME Condition: Stable Discharge Details Reason For Visit: Right ureteral stone Attending Provider: Matt Gamez Primary Care Provider: Glenn Christina Home Meds and New Rx's Prescriptions: No Action lisinopril 10 mg tablet 10 mg PO DAILY RF: 0 metoprolol tartrate 50 mg tablet 25 mg PO BID RF: 0 Eliquis 5 mg tablet 5 mg PO BID RF: 0 acetaminophen 500 mg Tablet 1,000 mg PO Q6H PRNRF: 0 cholecalciferol (vitamin D3) [Vitamin D3] 25 mcg (1,000 unit) Capsule 50 mcg PO DAILY RF: 0 tramadol 50 mg tablet 50 mg PO Q6H PRN (Reason: pain) Qty: 15 RF: 0 ipratropium bromide 42 mcg (0.06 %) spray,non-aerosol 1 spray INTRANASAL BID PRNRF: 0 Ocuvite Adult 50 Plus 250-5-1 mg Capsule 1 cap PO DAILY RF: 0 Discharge Instructions Additional Instructions: OK to restart Eliquis 02/26 Pt will need followup renal ultrasound in 4 to 8 weeks No appointment needed for us - we will work with his urologist in [place], [place] to insure continuity of care Activity:: Activity as Tolerated Shower/Bathe:: 24 hours Diet:: As Tolerated Discharge Orders Discharge Orders: Discharge Order (Routine); Ordered 02/25/21 Ordered By: Matt Gamez DS: Diagnosis Discharge Diagnosis (1) Calculus of distal right ureter: Status: Acute
[2021-02-25 09:32] VITALS: BP 148/87; PULSE 70; RESP 16; TEMP 36; O2SAT 94
--- NOTE | 2021-02-25 09:33 | W.ANESPOSTOP ---
Postoperative Evaluation Date, Time and Location Date Performed: 02/25/21 Time Performed: 09:34 Patient Location: Day Surgery Unit Vital Signs Most Recent Imported Vital Signs: Most Recent Vital Signs Temp Pulse Resp BP Pulse Ox 36.4 C L 65 16 152/82 H 96 02/25/21 07:37 02/25/21 07:37 02/25/21 07:37 02/25/21 07:37 02/25/21 07:37 Most Recent Manually Entered Vital Signs: Adult Blood Pressure: 148/87 Heart Rate: 70 Respirations: 12 Oxygen Saturation (%): 95 Temperature (C): 36.0 C Pain Score (0-10 Scale): 0 Pain Score Most Recent Pain Score: Most Recent Pain Score Pain Level 0 02/25/21 07:37 Assessment Mental Status: Awake (Alert & Oriented to Patient Baseline) Airway and Respiratory Function: Patent airway with normal (patient baseline) respiratory exam Cardiovascular Function: Hemodynamically Stable Hydration Status: Adequately Hydrated Nausea & Vomiting: No Nausea or Vomiting Pain: Pt. Denies Any Pain Peripheral Nerve Block: Patient did not receive a nerve block
[2021-02-25 09:34] VITALS: BP 148/87; PULSE 70; RESP 12; TEMPC 36; O2SAT 95
--- NOTE | 2021-02-25 09:45 | ROE_ITS ---
Date of service: 02/25/21 Time of Service: 09:45 Operative Note Operative Note DATE OF PROCEDURE: 02/25/21 PRE-OP DIAGNOSIS: right ureteral stone POST-OP DIAGNOSIS: same PROCEDURE: Cystoscopy, remove right ureteral stent, right ureteroscopy and stone extraction SURGEON: Matt Gamez ANESTHESIA TYPE: Local By Surgeon and General:No Airway Refer to Anesthesia Record ESTIMATED BLOOD LOSS: 5 PATHOLOGY: other (stone for chemical analysis) COMPLICATIONS: None Patient was transported to: same day Patient's condition: stable Implants: none Indications: Is a 76-year-old gentleman who has a past history of kidney stones. He spends the majority of the year in [place] and has had multiple stone procedures there. He was here in [place] when he developed right abdominal pain. He was evaluated with a CT scan which demonstrated a right ureteral stone. He then developed fevers and chills and we suspected a urinary source of an infection, so we urgently placed a right ureteral stent. He did not defervesce with the stent placement and he was found to have positive cocci in the blood. He was then treated for pneumonia. His respiratory symptoms have improved. He presents back now for stent removal and stone manipulation Findings: Right distal ureteral stone Procedure Description: Was given preoperative antibiotics and brought to the operating room on 02/25/2021. After successful induction of general anesthesia, he was placed in the dorsal lithotomy position. His genitalia was prepped and draped. 2% Xylocaine jelly was instilled into the urethra to act as a local anesthetic. A 22 Frisian rigid cystoscope was passed through the urethra into the bladder. The urethra and bladder were inspected with a 30 degree lens. The pendulous, bulbar and membranous urethra's appeared normal with no strictures. The prostatic urethra showed lateral lobe enlargement but no significant median lobe. The right ureteral stent was visualized and was grasped with an alligator forceps. The stent was then withdrawn to the level of the urethral meatus. A straight Glidewire was advanced through the lumen of the stent and the stent was removed. We then removed the cystoscope and used a semirigid ureteroscope. We passed the ureteroscope through the urethra into the bladder. We were able to maneuver into the right ureteral orifice and there in the distal ureter, a large stone was visualized. The ureter was nicely dilated as well, so I was able to grasp the stone in a Polly stone basket and remove it in its entirety. The stone was then sent to the lab for chemical analysis. With the limited trauma from this procedure, we elected not to replace his ureteral stent. All scopes were removed. He was taken to the recovery room in stable condition
[2021-02-25 09:56] VITALS: BP 159/91; PULSE 64; TEMP 36.4; O2SAT 95
[2021-03-02 16:08] LABS: Source: Right Ureter
== END 2021-02-25 10:35 | disposition home or self-care (01) ==
PROVIDERS: PCP Family Medicine; Visit Provider Urology
PROC: (CPT 52320; principal; 2021-02-25 08:30)
DX: N20.1 Calculus of ureter (principal); G47.33 Obstructive sleep apnea (adult) (pediatric); I10 Essential (primary) hypertension; Z79.01 Long term (current) use of anticoagulants
CPT/HCPCS: 52320; 74420; 82365; J0690; J2001

== ENCOUNTER → 2022-01-06 08:45 | Outpatient (BNVA) | payer MEDICARE, BC, SELFPAY | PROVIDERS: PCP Family Medicine; Referring Provider Family Medicine; Visit Provider Internal Medicine Cardiovascular Disease | DX: I10 Essential (primary) hypertension; I48.0 Paroxysmal atrial fibrillation; Z86.79 Personal history of other diseases of the circulatory system | CPT/HCPCS: 93005; 99203; 99214 ==

== ENCOUNTER 2022-01-06 08:51 | Outpatient (CLI) | payer MEDICARE, BC, SELFPAY ==
--- NOTE | 2022-01-06 08:51 | RT.EKG_ITS ---
APPROVED REPORT Exam: Resting ECG Reason for Exam: afib Patient Location: O HR:69 bpm ECG Measurements Heart Rate 69 AXIS IA 216 P 4 QRSd 130 QRS -56 QT 390 T 74 QTc 418 Conclusion Sinus rhythm...normal P axis, V-rate 50- 99 Borderline prolonged IA interval...IA >212, V-rate 50- 90 Probable left atrial enlargement...P >50mS, <-0.10mV V1 Left anterior fascicular block Left ventricular hypertrophy with repolarization abnormalities
== END 2022-01-06 08:52 | disposition home or self-care (01) ==
LOC: DI.CARD 08:51
PROVIDERS: PCP Family Medicine; Visit Provider Internal Medicine Cardiovascular Disease
DX: I48.91 Unspecified atrial fibrillation (principal); R94.31 Abnormal electrocardiogram [ECG] [EKG]; I44.4 Left anterior fascicular block
CPT/HCPCS: 93010

== ENCOUNTER 2022-01-10 15:38 | Outpatient (REF) | payer MEDICARE, BC, SELFPAY ==
--- NOTE | 2022-01-10 11:00 | SKI_PTH ---
PATIENT: Augustine Messina LOC: [facility] U#:[id number] AGE/SX: 76/M ROOM: RE01/10/[address]: Glenn Christina : 1945 BED: DIS: 01/10/2022 SPEC #: [id number] RECD: 01/10/22 18:26 STATUS: KAMAR REQ #: [id number] MARISELA: 01/10/22 11:[address]: Glenn Christina DEPT: Surgical Specimen RECD BY: Josefa Bello Tissues: 1 - SKIN BIOPSY(SHAVE/PUNCH) Procedures: SKIN LEVEL 4 Comments: [id number]
== END 2022-01-10 15:39 | disposition home or self-care (01) ==
LOC: LBN 15:38
PROVIDERS: PCP Family Medicine; Visit Provider Family Medicine
DX: D18.01 Hemangioma of skin and subcutaneous tissue (principal)
CPT/HCPCS: 88305

== ENCOUNTER → 2022-02-07 13:02 | Outpatient (BNVA) | payer MEDICARE, BC, SELFPAY | PROVIDERS: PCP Family Medicine; Referring Provider Family Medicine; Visit Provider Internal Medicine Cardiovascular Disease | DX: I48.0 Paroxysmal atrial fibrillation (principal); I10 Essential (primary) hypertension; I35.1 Nonrheumatic aortic (valve) insufficiency; Z86.79 Personal history of other diseases of the circulatory system | CPT/HCPCS: 99214 ==

== ENCOUNTER 2022-11-28 08:54 | Outpatient (CLI) | payer MEDICARE, BC, SELFPAY ==
--- NOTE | 2022-11-28 08:45 | RT.EKG_ITS ---
APPROVED REPORT Exam: Resting ECG Reason for Exam: amiodarone QT evaluation Patient Location: O HR:61 bpm ECG Measurements Heart Rate 61 AXIS MA 216 P -31 QRSd 129 QRS -56 QT 531 T 102 QTc 535 Conclusion Sinus rhythm...normal P axis, V-rate 50- 99 Borderline prolonged MA interval...MA >212, V-rate 50- 90 LVH with IVCD, LAD and secondary repol abnrm...multi-criteria, wQRSd, abnr ST-T Prolonged QT interval...QTc >500mS
== END 2022-11-28 08:55 | disposition home or self-care (01) ==
LOC: DI.CARD 08:55
PROVIDERS: PCP Family Medicine; Visit Provider Internal Medicine Cardiovascular Disease
DX: I48.0 Paroxysmal atrial fibrillation (principal); Z51.81 Encounter for therapeutic drug level monitoring
CPT/HCPCS: 93010

== ENCOUNTER → 2022-11-28 13:23 | Outpatient (BNVA) | payer MEDICARE, BC, SELFPAY | PROVIDERS: PCP Family Medicine; Visit Provider Internal Medicine Cardiovascular Disease | DX: Z79.01 Long term (current) use of anticoagulants (principal); I25.10 Atherosclerotic heart disease of native coronary artery without angina pectoris; I48.0 Paroxysmal atrial fibrillation; I10 Essential (primary) hypertension | CPT/HCPCS: 93005; 99214 ==

== ENCOUNTER → 2023-01-04 07:44 | Outpatient (BNVA) | payer MEDICARE, BC, SELFPAY | PROVIDERS: PCP Family Medicine; Referring Provider Family Medicine; Visit Provider Nurse Practitioner Gerontology | DX: N32.81 Overactive bladder (principal); N40.1 Benign prostatic hyperplasia with lower urinary tract symptoms; R39.89 Other symptoms and signs involving the genitourinary system | CPT/HCPCS: 51798; 81003; 99214 ==

== ENCOUNTER → 2023-02-01 07:43 | Outpatient (BNVA) | payer MEDICARE, BC, SELFPAY | PROVIDERS: PCP Family Medicine; Visit Provider Nurse Practitioner Gerontology | DX: N32.81 Overactive bladder (principal); N40.1 Benign prostatic hyperplasia with lower urinary tract symptoms; R39.89 Other symptoms and signs involving the genitourinary system; I10 Essential (primary) hypertension | CPT/HCPCS: 51798; 99214 ==

== ENCOUNTER → 2023-11-14 08:24 | Outpatient (BNVA) | payer MEDICARE, BC, SELFPAY | PROVIDERS: PCP Family Medicine; Referring Provider Family Medicine; Visit Provider Nurse Practitioner Gerontology | DX: N32.81 Overactive bladder (principal); N20.0 Calculus of kidney | CPT/HCPCS: 51798; 81003; 99213 ==

== ENCOUNTER 2023-12-04 13:09 | Outpatient (CLI) | payer MEDICARE, BC, SELFPAY ==
--- NOTE | 2023-12-04 13:30 | RT.EKG_ITS ---
APPROVED REPORT Exam: Resting ECG Reason for Exam: amiodarone therapy Patient Location: O HR:61 bpm ECG Measurements Heart Rate 61 AXIS CO 196 P -46 QRSd 142 QRS -65 QT 487 T 32 QTc 491 Conclusion Sinus or ectopic atrial rhythm...P axis (-45,135) IVCD, consider atypical RBBB...QRSd>120mS, terminal axis(90,270) LVH with IVCD, LAD and secondary repol abnrm...multi-criteria, wQRSd, abnr ST-T
== END 2023-12-04 13:10 | disposition home or self-care (01) ==
LOC: DI.CARD 13:31
PROVIDERS: PCP Family Medicine; Visit Provider Internal Medicine Cardiovascular Disease
DX: I48.0 Paroxysmal atrial fibrillation (principal); I45.10 Unspecified right bundle-branch block; I49.8 Other specified cardiac arrhythmias; I25.10 Atherosclerotic heart disease of native coronary artery without angina pectoris
CPT/HCPCS: 93010

== ENCOUNTER → 2023-12-04 13:09 | Outpatient (BNVA) | payer MEDICARE, BC, SELFPAY | PROVIDERS: PCP Family Medicine; Referring Provider Family Medicine; Visit Provider Internal Medicine Cardiovascular Disease | DX: I25.10 Atherosclerotic heart disease of native coronary artery without angina pectoris (principal); I48.0 Paroxysmal atrial fibrillation | CPT/HCPCS: 93005; 99213 ==

== ENCOUNTER → 2024-11-18 08:07 | Outpatient (BNVA) | payer MEDICARE, BC, SELFPAY | PROVIDERS: PCP Family Medicine; Visit Provider Nurse Practitioner Gerontology | DX: N32.81 Overactive bladder (principal); N20.0 Calculus of kidney; N40.1 Benign prostatic hyperplasia with lower urinary tract symptoms; N13.8 Other obstructive and reflux uropathy; R35.1 Nocturia; R31.29 Other microscopic hematuria; R60.0 Localized edema | CPT/HCPCS: 99214; 81002 ==

== ENCOUNTER 2024-12-03 07:55 | Outpatient (CLI) | payer MEDICARE, BC, SELFPAY ==
--- NOTE | 2024-12-03 07:45 | RT.EKG_ITS ---
APPROVED REPORT Exam: Resting ECG Reason for Exam: ASCVD Patient Location: O HR:76 bpm ECG Measurements Heart Rate 76 AXIS OK 213 P 2 QRSd 140 QRS -56 QT 450 T 96 QTc 507 Conclusion Sinus rhythm...normal P axis, V-rate 50- 99 Borderline prolonged OK interval...OK >212, V-rate 50- 90 Left bundle branch block...QRSd>120, broad/notched R
== END 2024-12-03 07:56 | disposition home or self-care (01) ==
LOC: DI.CARD 07:55
PROVIDERS: PCP Family Medicine; Visit Provider Internal Medicine Cardiovascular Disease
DX: I48.0 Paroxysmal atrial fibrillation (principal); I25.10 Atherosclerotic heart disease of native coronary artery without angina pectoris; I44.7 Left bundle-branch block, unspecified
CPT/HCPCS: 93010

== ENCOUNTER → 2024-12-03 13:22 | Outpatient (BNVA) | payer MEDICARE, BC, SELFPAY | PROVIDERS: PCP Family Medicine; Visit Provider Internal Medicine Cardiovascular Disease | DX: I25.10 Atherosclerotic heart disease of native coronary artery without angina pectoris (principal); I48.0 Paroxysmal atrial fibrillation; Z86.79 Personal history of other diseases of the circulatory system; Z79.01 Long term (current) use of anticoagulants | CPT/HCPCS: 99214; 93005 ==